=== PATIENT | male | born 1980 | race Caucasian/White ===

== ENCOUNTER 2017-11-30 20:44 | Inpatient (IN) | payer OTHER, MEDICAID ==
[2017-11-29 21:15] VITALS: O2SAT 100
[~2017-11-30] VITALS: Ht 172.7 cm; Wt 112.5 kg
[2017-11-30] VITALS (18 sets, daily range): BP systolic 109–206; BP diastolic 64–109; PULSE 96–152; RESP 18–28; TEMP 99.1–99.7; O2SAT 65–100
[2017-11-30] MEDS: SODIUM CHLOR 0.9% 1000 ML INJ 1,000 ML IV SCH (00:30)
[~2017-11-30 20:44] MED LIST: EPINEPHrine HCL (1:10,000) 1 MG/10 ML SYRINGE IV ONE; NALOXONE HCL 4 MG/10 ML MDV IV ONE; SODIUM BICARBONATE 8.4% INJ 50 MEQ/50 ML SYR IV ONE
[2017-11-30] MEDS ORDERED: SODIUM CHLORIDE 0.9% FLUSH 10 ML FLUSH IVF PRN ×2 (21:00)
[2017-11-30] MEDS ORDERED: NOREPINEPHRINE INJ 4 MG in SODIUM CHLOR 0.9% 250 ML INJ 246 ML IV PRN (21:00)
[2017-11-30] MEDS ORDERED: SODIUM CHLOR 0.9% 1000 ML INJ 1,000 ML IV ONE ×3 (21:00)
[2017-11-30] MEDS ORDERED: TERBUTALINE INJ 1 MG/ML AMP SQ PRN (21:00)
[2017-11-30] MEDS ORDERED: AMIODARONE INJ 450 MG in DEXTROSE 5% IN WATE(EXCEL) INJ 241 ML IV SCH ×2 (21:13)
[2017-11-30 21:20] LABS: AUTOMATED NEUTROPHIL # 9.8 TH/MM3 (1.8-7.7); BASOPHIL % 0.2 % (0.0-2.0); EOSINOPHIL % 0.2 % (0.0-4.0); HEMATOCRIT 38.6 % (39.0-51.0); LYMPH % 31.6 % (9.0-44.0); LYMPHOCYTE # 5.2 TH/MM3 (1.0-4.8); MEAN CELL VOLUME 92.6 FL (80.0-100.0); MEAN CORPUSCULAR HEMOGLOBIN 28.8 PG (27.0-34.0); MEAN PLATELET VOLUME 9.4 FL (7.0-11.0); MONO % 8.5 % (0.0-8.0); MONOCYTE # 1.4 TH/MM3 (0-0.9); NEUT % 59.5 % (16.0-70.0); PLATELET COUNT 212 TH/MM3 (150-450); RED BLOOD COUNT 4.17 MIL/MM3 (4.50-5.90); RED CELL DISTRIBUTION WIDTH 13.5 % (11.6-17.2); WHITE BLOOD COUNT 16.5 TH/MM3 (4.0-11.0)
[2017-11-30] MEDS: AMIODARONE INJ 450 MG in SODIUM CHLOR 0.9% (EXCEL) INJ 241 ML IV SCH (21:23)
--- NOTE | 2017-11-30 21:28 | RADRPT ---
EXAM DATE/TIME: 11/30/2017 21:17 [facility] COMPARISON: No previous studies available for comparison. INDICATIONS : Post intubation. MEDICAL HISTORY : None. SURGICAL HISTORY : None. ENCOUNTER: Initial ACUITY: 1 day PAIN SCORE: Non-responsive. LOCATION: Bilateral chest FINDINGS: An endotracheal tube has its tip 3 cm above the spencer. A nasogastric tube is noted within the stomac h. Patchy opacity is noted within the left upper lung field consistent with possible pneumonia. More diffuse perihilar infiltrates are suggestive of pulmonary vascular congestion or pneumonia. The heart is mildly enlarged. CONCLUSION: 1. Left upper lung field patchy consolidation consistent with possible pneumonia. 2. More diffuse perihilar infiltrates suggestive of pulmonary vascular congestion or pneumonia. 3. Cardiomegaly. 4. Endotracheal tube in good position with its tip 3 cm above the spencer. Tim Johnson MD on November 30, 2017 at 21:23 Board Certified Radiologist. This report was verified electronically.
[2017-11-30 21:29] LABS: INTERNATIONAL NORMALIZED RATIO 1.2 RATIO; PROTHROMBIN TIME - PATIENT 11.9 SEC (9.8-11.6)
[2017-11-30] MEDS ORDERED: PIPERACIL-TAZO 3.375 GM PREMIX 50 ML IV ONE (21:30)
[2017-11-30] MEDS ORDERED: VANCOMYCIN INJ 1,000 MG in SODIUM CHLOR 0.9% 250 ML INJ 250 ML IV ONE (21:30)
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
[2017-11-30 21:47] LABS: TROPONIN I 7.61 NG/ML (0.02-0.05)
[2017-11-30] MEDS ORDERED: PROPOFOL 1000 MG/100 ML INJ 100 ML IV PRN (22:00)
[2017-11-30] MEDS ORDERED: HEPARIN SODIUM - SQ 10,000 UNITS/ML VIAL SQ SCH (22:00)
[2017-11-30 22:06] LABS: AMORPHOUS SEDIMENT, URINE RARE; BACTERIA, URINE RARE /hpf; BILIRUBIN, URINE NEG (NEG); BLOOD, URINE MOD (NEG); GLUCOSE,URINE NEG (NEG); KETONE, URINE NEG (NEG); MUCUS URINE FEW /lpf (OCC); NITRITE,URINE NEG (NEG); PH, URINE 6.5 (5.0-8.5); SQUAMOUS EPITHELIAL CELL URINE <1 /hpf (0-5); URINE COLOR LIGHT-YELLOW (YELLW/STRAW); URINE LEUKOCYTE ESTERASE SMALL (NEG)
[2017-11-30 22:07] LABS: BANDS 10 % (0-6); LYMPHOCYTES 34 % (9-44); METAMYELOCYTES 2 % (0-1); MONOCYTES 7 % (0-8); MYELOCYTES 1 % (0-0); NEUTROPHIL # MANUAL DIFF 9.7 TH/MM3 (1.8-7.7); POLYS (SEG NEUTROPHILS) 46 % (16-70)
[2017-11-30] MEDS ORDERED: MAGNESIUM OXIDE 400 MG TAB PO PRN (22:30)
[2017-11-30] MEDS ORDERED: MAGNESIUM HYDROXIDE SUSP 30 ML CUP PO PRN (22:30)
[2017-11-30] MEDS ORDERED: POTASSIUM PHOSPHATE MONOBASIC 500 MG TAB PO/TUBE PRN (22:30)
[2017-11-30] MEDS ORDERED: POTASSIUM CHLOR 40 MEQ PREMIX 100 ML IV PRN (22:30)
[2017-11-30] MEDS ORDERED: POTASSIUM PHOSPHATE INJ 30 MMOL in SODIUM CHLOR 0.9% 250 ML INJ 250 ML IV PRN (22:30)
[2017-11-30] MEDS: OSELTAMIVIR PHOSPHATE 6 MG/ML 60 ML SUSP PO SCH (22:30)
[2017-11-30] MEDS ORDERED: POTASSIUM CHLOR 20 MEQ PREMIX 100 ML IV PRN ×2 (22:30)
[2017-11-30] MEDS ORDERED: SODIUM CHLORIDE 0.9% FLUSH 10 ML FLUSH IV FLUSH PRN (22:30)
[2017-11-30] MEDS ORDERED: POTASSIUM CHLORIDE 25 MEQ EFFERVESCENT TAB PO PRN (22:30)
[2017-11-30] MEDS ORDERED: ONDANSETRON HCL 4 MG/2 ML VIAL IV PUSH PRN (22:30)
[2017-11-30] MEDS ORDERED: POTASSIUM PHOSPHATE MONOBASIC 500 MG TAB PO PRN (22:30)
[2017-11-30] MEDS ORDERED: LACTULOSE SYRUP 20 GM/30 ML CUP PO PRN (22:30)
[2017-11-30] MEDS ORDERED: BISACODYL 10 MG SUPP RECTAL PRN (22:30)
[2017-11-30] MEDS ORDERED: ACETAMINOPHEN 325 MG TAB PO PRN (22:30)
[2017-11-30] MEDS ORDERED: MIDAZOLAM HCL 2 MG/2 ML VIAL IV PUSH PRN (22:30)
[2017-11-30] MEDS ORDERED: SODIUM PHOSPHATE INJ 30 MMOL in SODIUM CHLOR 0.9% 250 ML INJ 240 ML IV PRN (22:30)
[2017-11-30] MEDS ORDERED: SENNOSIDES 8.6 MG TAB PO PRN (22:30)
[2017-11-30] MEDS ORDERED: CHLORHEXIDINE GLUCONATE 2 % 1 PACK (2 CLOTHS) TOP PRN (22:30)
[2017-11-30] MEDS ORDERED: MAGNESIUM SULFATE INJ 4 GM in SODIUM CHLORIDE 0.9% INJ 92 ML IV PRN (22:30)
[2017-11-30] MEDS ORDERED: MAGNESIUM SULFATE INJ 2 GM in SODIUM CHLORIDE 0.9% INJ 96 ML IV PRN (22:30)
[2017-11-30] MEDS ORDERED: MISCELLANEOUS NURSING INFORMATION XX SCH (22:30)
[2017-11-30] MEDS ORDERED: IOHEXOL 350 MG/ML 10 ML VIAL (for RAD DIAG) IVCONTRAST ONE (23:03)
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
[2017-11-30] MEDS ORDERED: AMIODARONE INJ 450 MG in DEXTROSE 5% IN WATE(EXCEL) INJ 241 ML IV PRN ×2 (23:14)
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
[2017-11-30] MEDS: POTASSIUM CHLOR 40 MEQ PREMIX 100 ML IV PRN (23:30)
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
[2017-12-01] VITALS (16 sets, daily range): BP systolic 91–137; BP diastolic 53–78; PULSE 86–151; RESP 10–20; TEMP 95.2–99.2; O2SAT 93–100
[2017-12-01] MEDS: POTASSIUM CHLOR 40 MEQ PREMIX 100 ML IV PRN
[2017-12-01] MEDS: RESP: ALBUTEROL 2.5 MG/IPRATROPIUM 0.5 MG NEB (PRN) INH ×2 (00:13→04:30)
[2017-12-01] MEDS ORDERED: MIDAZOLAM HCL 2 MG/2 ML VIAL IV PUSH ONE (00:30)
[2017-12-01] MEDS ORDERED: MEPERIDINE HCL 25 MG/ML VIAL ONE (00:51)
[2017-12-01] MEDS ORDERED: Vancomycin Consult Pharmacy 1 EA OTHER SCH (01:00)
[2017-12-01] MEDS ORDERED: Mix all IV Meds in NS IV SCH (01:00)
[2017-12-01] MEDS ORDERED: LORazepam 2 MG/ML VIAL IV PUSH PRN (01:00)
[2017-12-01] MEDS ORDERED: VANCOMYCIN INJ 2,000 MG in SODIUM CHLORID 0.9% 500 ML INJ 500 ML IV ONE ×2 (01:00→13:30)
[2017-12-01] MEDS ORDERED: SODIUM CHLORIDE 0.9% FLUSH 10 ML FLUSH IV FLUSH PRN ×2 (01:00)
[2017-12-01] MEDS ORDERED: CISATRACURIUM 100 MG/NS 250 ML IV PRN ×2 (01:00)
[2017-12-01] MEDS ORDERED: MEPERIDINE HCL 25 MG/ML VIAL IV PUSH PRN (01:00)
[2017-12-01] MEDS: NOREPINEPHRINE 4 MG/250 ML NS IV PRN ×8 (01:30→16:46)
[2017-12-01 01:32] LABS: TOTAL PROTEIN,CSF 30.9 MG/DL (15.0-45.0)
[2017-12-01 01:39] LABS: SUPERNATE COLOR TUBE #1 SLIGHTLY XANTHOCHROM (CLEAR)
[2017-12-01 01:40] LABS: RBC TUBE #4 1917 /MM3; WBC TUBE #4 29 /MM3 (0-10)
[2017-12-01 01:44] LABS: CSF LYMPHOCYTES 3 %; CSF MONOCYTES 4 %; CSF NEUTROPHILS 93 %
[2017-12-01] MEDS: VASOPRESSIN INJ 40 UNITS in DEXTROSE 5% IN WATER 100ML INJ 98 ML IV SCH ×4 (02:27→15:07)
[2017-12-01] MEDS: MILRINONE INJ 20 MG in SODIUM CHLORIDE 0.9% INJ 80 ML IV SCH ×3 (02:48→15:06)
[2017-12-01] MEDS: AZITHROMYCIN INJ 500 MG in SODIUM CHLOR 0.9% 250 ML INJ 250 ML IV SCH (03:00)
[2017-12-01] MEDS: PIPERACIL-TAZO 4.5 GM PREMIX 100 ML IV SCH ×2 (03:00→09:09)
[2017-12-01] MEDS ORDERED: EPINEPHrine HCL (1:1000) 1 MG/ML VIAL ONE (03:29)
[2017-12-01] MEDS: EPINEPHrine (1:1000) INJ 2 MG in DEXTROSE 5% IN WATER INJ 250 ML IV PRN ×6 (04:00→16:45)
[2017-12-01] MEDS: CHLORHEXIDINE GLUCONATE 2 % 1 PACK (2 CLOTHS) TOP SCH (04:00)
[2017-12-01] MEDS: AMIODARONE INJ 450 MG in SODIUM CHLOR 0.9% (EXCEL) INJ 241 ML IV SCH ×3 (04:48→15:08)
[2017-12-01 05:28] LABS: AUTOMATED NEUTROPHIL # 19.7 TH/MM3 (1.8-7.7); BASOPHIL # 0.1 TH/MM3 (0-0.2); BASOPHIL % 0.3 % (0.0-2.0); HEMATOCRIT 37.5 % (39.0-51.0); LYMPH % 6.1 % (9.0-44.0); LYMPHOCYTE # 1.4 TH/MM3 (1.0-4.8); MEAN CELL VOLUME 86.9 FL (80.0-100.0); MEAN CORPUSCULAR HEMOGLOBIN 30.1 PG (27.0-34.0); MEAN CORPUSCULAR HGB CONC 34.7 % (32.0-36.0); MEAN PLATELET VOLUME 8.8 FL (7.0-11.0); MONO % 7.6 % (0.0-8.0); MONOCYTE # 1.7 TH/MM3 (0-0.9); PLATELET COUNT 253 TH/MM3 (150-450); RED BLOOD COUNT 4.32 MIL/MM3 (4.50-5.90); RED CELL DISTRIBUTION WIDTH 13.6 % (11.6-17.2); WHITE BLOOD COUNT 22.9 TH/MM3 (4.0-11.0)
[2017-12-01 05:41] LABS: ALBUMIN 2.4 GM/DL (3.4-5.0); ALKALINE PHOSPHATASE 124 U/L (45-117); ALT (GPT) 451 U/L (12-78); AST (GOT) 832 U/L (15-37); BICARBONATE 16.5 MEQ/L (21.0-32.0); BLOOD UREA NITROGEN 20 MG/DL (7-18); CALCIUM 7.3 MG/DL (8.5-10.1); CALCIUM-PROTEIN CORRECTED 7.8 MG/DL (8.5-10.1); CHLORIDE 105 MEQ/L (98-107); CREATININE 2.93 MG/DL (0.60-1.30); GLOMERULAR FILTRATION RATE 24 ML/MIN (>89); GLUCOSE,RANDOM 297 MG/DL (74-106); MAGNESIUM 2.2 MG/DL (1.5-2.5); PHOSPHORUS 3.4 MG/DL (2.5-4.9); SODIUM (NA) 139 MEQ/L (136-145); TOTAL BILIRUBIN ADULT 1.2 MG/DL (0.2-1.0); TOTAL PROTEIN 6.1 GM/DL (6.4-8.2)
--- NOTE | 2017-12-01 05:51 | RADRPT ---
EXAM DATE/TIME: 12/01/2017 04:35 [facility] COMPARISON: CHEST SINGLE AP, November 30, 2017, 21:17. INDICATIONS : Short of breath. MEDICAL HISTORY : None. SURGICAL HISTORY : None. ENCOUNTER: Initial ACUITY: 1 day PAIN SCORE: 0/10 LOCATION: Bilateral chest FINDINGS: A single view of the chest demonstrates endotracheal tube and nasogastric tube in good position. Slig ht improvement in airspace disease on the left and right perihilar region since November 30. No pneumo thorax or significant effusion. CONCLUSION: 1. Endotracheal tube and nasogastric tube in good position. Improving airspace disease. Max Suarez MD on December 01, 2017 at 5:46 Board Certified Radiologist. This report was verified electronically.
[2017-12-01 05:58] LABS: TROPONIN I GREATER THAN 40.00 NG/ML (0.02-0.05)
[2017-12-01 07:05] LABS: BANDS 33 % (0-6); BASOPHILS 1 % (0-2); MONOCYTES 7 % (0-8); NEUTROPHIL # MANUAL DIFF 21.1 TH/MM3 (1.8-7.7); POLYS (SEG NEUTROPHILS) 59 % (16-70)
[2017-12-01 07:06] LABS: ACANTHOCYTES OCC (NORMAL); BURR CELLS 1+ (NORMAL)
[2017-12-01 07:07] LABS: DOHLE BODIES PRESENT (NONE SEEN); TOXIC VACUOLATION PRESENT (NONE SEEN)
[2017-12-01] MEDS ORDERED: FAMOTIDINE 20 MG/2 ML VIAL IV PUSH SCH (09:00)
[2017-12-01] MEDS: DOCUSATE SODIUM 50 MG/SENNA 8.6 MG TAB PO SCH ×2 (09:00→21:00)
[2017-12-01] MEDS: ARTIFICIAL TEARS OPTH SOLN 15 ML BTL EACH EYE SCH ×3 (09:00→17:42)
[2017-12-01] MEDS ORDERED: SODIUM CHLORIDE 0.9% FLUSH 10 ML FLUSH IV FLUSH SCH (09:00)
[2017-12-01] MEDS: OSELTAMIVIR PHOSPHATE 6 MG/ML 60 ML SUSP PO SCH (09:00)
--- NOTE | 2017-12-01 09:28 | EKG ---
Date Performed: 11/30/2017 Time Performed: 20:52:29 PTAGE: 37 years EKG: ATRIAL FIBRILLATION WITH RAPID VENTRICULAR RESPONSE MARKED LEFT AXIS DEVIATION LEFT BUNDLE BRANCH BLOCK MARKED ST DEPRESSION, CONSIDER SUBENDOCARDIAL INJURY ABNORMAL ECG NO PREVIOUS TRACING DOCTOR: Jose Lopez Interpretating Date/Time 12/01/2017 09:25:36
[2017-12-01] MEDS ORDERED: PILL SPLITTER OTHER PRN (11:45)
[2017-12-01] MEDS ORDERED: SODIUM BICARBONATE 8.4% INJ 50 MEQ/50 ML SYR ONE (12:26)
--- NOTE | 2017-12-01 12:26 | ECHRPT ---
Indication: ?EF assessment in CHF CONCLUSIONS Normal left ventricular size. Wall thickness is normal. The left ventricular systolic function is bqryybtn-ow-dnpudwa reduced with an estimated ejection fra ction in the range of 35-40%. The right ventricular size is normal. There is trace tricuspid valve regurgitation. The pulmonary valve is not well visualized. BP: 98 / 98 HR: 86 Rhythm: Sinus MEASUREMENTS (Male / Female) Normal Values Technical Quality:Technically difficult study 2D ECHO LV Diastolic Diameter PLAX 4.9 cm 4.2 - 5.9 / 3.9 - 5.3 cm LV Systolic Diameter PLAX 4.0 cm IVS Diastolic Thickness 0.9 cm 0.6 - 1.0 / 0.6 - 0.9 cm LVPW Diastolic Thickness 0.9 cm 0.6 - 1.0 / 0.6 - 0.9 cm LV Relative Wall Thickness 0.4 RV Internal Dim ED PLAX 1.9 cm LVOT Diameter 2.0 cm Aortic Root Diameter 3.1 cm LA Systolic Diameter LX 2.4 cm 3.0 - 4.0 / 2.7 - 3.8 cm M-MODE AV Cusp Separation MM 2.4 cm DOPPLER AV Peak Velocity 95.1 cm/s AV Peak Gradient 3.6 mmHg AV Mean Gradient 2.0 mmHg AV Velocity Time Integral 10.1 cm LVOT Peak Velocity 67.7 cm/s LVOT Peak Gradient 1.8 mmHg LVOT Velocity Time Integral 8.8 cm AV Area Cont Eq vti 2.7 cm AV Area Cont Eq pk 2.2 cm Mitral E Point Velocity 41.5 cm/s Mitral A Point Velocity 55.3 cm/s Mitral E to A Ratio 0.8 LV E' Lateral Velocity 6.3 cm/s Mitral E to LV E' Lateral Ratio 6.5 LV E' Septal Velocity 7.5 cm/s Mitral E to LV E' Septal Ratio 5.5 TR Peak Velocity 278.0 cm/s TR Peak Gradient 30.9 mmHg Right Atrial Pressure 10.0 mmHg Pulmonary Artery Systolic Pressu 40.9 mmHg Right Ventricular Systolic Press 40.9 mmHg PV Peak Velocity 51.9 cm/s PV Peak Gradient 1.1 mmHg FINDINGS LEFT VENTRICLE Normal left ventricular size. Wall thickness is normal. The left ventricular systolic function is okmjgkce-zn-dczzgtn reduced with an estimated ejection fra ction in the range of 35-40%. RIGHT VENTRICLE The right ventricular size is normal. LEFT ATRIUM The left atrial size is normal. RIGHT ATRIUM The right atrial size is normal. ATRIAL SEPTUM No atrial level shunt is demonstrated by color flow Doppler interrogation. AORTA The aortic root and proximal ascending aorta are normal in size on limited imaging. MITRAL VALVE Structurally normal mitral valve. AORTIC VALVE The aortic valve is not well visualized. TRICUSPID VALVE There is trace tricuspid valve regurgitation. PULMONARY VALVE The pulmonary valve is not well visualized. PERICARDIUM No pericardial effusion. Leo Moore MD Edited by: [employer] (Electronically Signed) Final Date:01 December 2017 05:56 Amended: 01 December 2017 12:25
--- NOTE | 2017-12-01 12:48 | MB ---
cc: ALLABECCAN DATE OF CONSULTATION 12/01/2017 REASON FOR CONSULTATION Status post ventricular fibrillation/arrest, probable acute myocardial infarction. HISTORY OF PRESENT ILLNESS History is obtained from the electronic records as well as his brother. The patient is intubated, sedated, unresponsive. He is a 37-year-old, originally from [facility] [place], with no major past medical history except for apparent transient unexplained loss of left eye vision a few years ago, possibly hyperlipidemia, who was found down at home. The emergency services apparently found him to be in ventricular fibrillation necessitating four shocks. En route to the emergency room and again in the emergency department, he developed intermittent pulseless electrical activity. At some point in the emergency department, he also had atrial fibrillation with wide complex QRS. He was felt to unstable at the time for emergency cardiac catheterization. According to family members, there has been no definite complaints of chest pain or shortness of breath recently. The patient did complain of flu symptoms about three to four days ago and started on Tamiflu two days ago. PAST MEDICAL HISTORY As above. CARDIAC MEDICATIONS AT HOME None CURRENT MEDICATIONS Current cardiac medications here in the hospital: 1. Heparin 5000 units subcutaneously q.8 h. 2. Epinephrine drip 3. Milrinone drip 4. Vasopressin drip 5. Norepinephrine drip 6. Amiodarone drip ALLERGIES NO KNOWN DRUG ALLERGIES. FAMILY HISTORY There is no significant family history of cardiac disease or sudden . SOCIAL HISTORY The patient has never smoked cigarettes. There is no history of alcohol abuse. REVIEW OF SYSTEMS Currently unobtainable. PHYSICAL EXAMINATION VITAL SIGNS: Blood pressure 97/57 with a pulse of 110, respirations 10. GENERAL: He is a well-developed, well-nourished [facility] male currently intubated and sedated. HEENT: On examination, jugular venous pressure is difficult to assess. Carotid pulses are 2+ bilaterally and without bruits. CHEST: Examination of the chest reveals clear lung xie anteriorly. CARDIAC: On cardiac examination, he has a tachycardiac regular rhythm without S3, S4, murmur or rub. ABDOMEN: On abdominal examination, he has a soft abdomen. No definite bowel sounds are audible. There is no definite hepatosplenomegaly. EXTREMITIES: Examination of extremities reveals no clubbing, cyanosis or edema. LABORATORY DATA Includes WBC 22.9, hemoglobin 13.0, platelets 253. Potassium 2.5, BUN 20, creatinine 2.93, AST 832, ALT 451, troponin greater than 40, CK 331 with 5.0% MB fraction. EKG shows atrial fibrillation, left bundle-branch block, ST abnormality, consider acute inferior injury pattern. Chest x-ray shows left upper lung field consolidation suggestive of possible pneumonia, perihilar infiltrates suggestive of pulmonary vascular congestion. Head CT shows diffuse effacement of the cerebral sulci bilaterally suggestive of probable diffuse anoxic encephalopathy. There is also a questionable subarachnoid hemorrhage bilaterally. IMPRESSION Probable acute myocardial infarction complicated by ventricular tachy arrhythmias and pulseless electrical activity cardiac arrest in this 37-year-old [facility] male with previously no major past medical history. It appears by head CT, he may have diffuse anoxic encephalopathy. There is also a question of subarachnoid hemorrhage. He may have been pulseless for a prolonged period of time. At this time, he continues to be hypotensive on considerable pressor support. Repeat EKG is pending. At this time, he is not a good candidate for emergency cardiac catheterization. RECOMMENDATIONS 1. Continue IV amiodarone for his ventricular arrhythmias as well as paroxysmal atrial fibrillation. 2. Continue pressor support and ventilatory support. 3. If his neurological status improves, recommend cardiac catheterization. MD ADDISON Yung/YOLA /12:24 PM /12:36 PM WILY
[2017-12-01] MEDS ORDERED: SODIUM BICARBONATE 8.4% INJ 50 MEQ/50 ML SYR IV PUSH ONE (12:49)
[2017-12-01] MEDS ORDERED: CALCIUM CHLORIDE INJ 2 GM in SODIUM CHLORIDE 0.9% INJ 100 ML IV ONE (14:00)
[2017-12-01 14:26] LABS: PHOSPHORUS 1.2 MG/DL (2.5-4.9)
[2017-12-01 14:35] LABS: TROPONIN I GREATER THAN 40.00 NG/ML (0.02-0.05)
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
[2017-12-01] MEDS: POTASSIUM CHLOR 20 MEQ PREMIX 100 ML IV SCH ×2 (15:02→17:41)
[2017-12-01] MEDS: PIPERACIL-TAZO 3.375 GM PREMIX 50 ML IV SCH ×2 (15:14→21:00)
--- NOTE | 2017-12-01 15:46 | RADRPT ---
EXAM DATE/TIME: 12/01/2017 13:56 [facility] COMPARISON: No previous studies available for comparison. INDICATIONS : Post cardiac arrest. DOSE: 25 mCi Tc99m DTPA IV The diagnosis of brain is clinical and the results of this test should be taken in the content of clinical and electrocephalographic data. MEDICAL HISTORY : None SURGICAL HISTORY : None. ENCOUNTER: Initial ACUITY: 1 day PAIN SCALE: Non-responsive LOCATION: Head. TECHNIQUE: Anterior dynamic imaging as well as delayed static imaging. FINDINGS: On the vertex image there is still minimal flow in the sagittal sinus. CONCLUSION: Minimal flow in the sagittal sinus. The patient does not meet the criteria for brain . Judah Schmitt MD on December 01, 2017 at 15:41 Board Certified Radiologist. This report was verified electronically.
[2017-12-01] MEDS: SODIUM CHLOR 0.9% 1000 ML INJ 1,000 ML IV SCH (17:42)
[2017-12-01] MEDS ORDERED: SODIUM BICARBONATE 8.4% INJ 50 MEQ/50 ML SYR IV ONE (18:00)
[2017-12-01] MEDS ORDERED: DILTIAZEM HCL 30 MG TAB PO SCH (18:00)
--- NOTE | 2017-12-01 20:37 | EKG ---
Date Performed: 12/01/2017 Time Performed: 16:06:50 PTAGE: 37 years EKG: Baseline artifact present Probable sinus tachycardia. Possible anterior infarct - age unde termined Low QRS voltages in precordial leads Abnormal ECG Compared to prior electrocardiogram, Irreg ular, wide complex rhythm is no longer present. PREVIOUS TRACING : 11/30/2017 20.52 DOCTOR: Titi Mitchell Interpretating Date/Time 12/01/2017 20:36:48
[2017-12-01] MEDS ORDERED: OSELTAMIVIR PHOSPHATE 6 MG/ML 60 ML SUSP PO SCH ×2 (21:00)
[2017-12-01] MEDS: FAMOTIDINE 20 MG TAB PO SCH (21:00)
[2017-12-01] MEDS ORDERED: HEPARIN SODIUM - SQ 10,000 UNITS/ML VIAL SQ SCH (22:00)
--- NOTE | 2017-12-01 22:02 | MG ---
cc: MARKY PELAYO MD Lab No: Date: 12/01/2017 Age: Sex: M Race: DATE OF 1980 ELECTROENCEPHALOGRAM RECORD NUMBER [id number] INDICATION History of cardiac arrest. Apparently on sedation for 12 hours prior to EEG. DESCRIPTION Flat line type of appearance occurring throughout the recording. Questionable minimal voltage delta activity. Single lead EKG showing sinus rhythm. INTERPRETATION Flat line appearance suggestive of severe cortical injury / suppression. Clinical correlation. Marky Pelayo MD MG/KK /9:14 PM /9:36 PM
--- NOTE | 2017-12-01 22:47 | PD.PROCEDR ---
Procedure Note Procedure Lumbar puncture A time-out was completed verifying correct patient, procedure, site, positioning , and special equipment if applicable. The patient was placed in the left lateral decubitus position in a semi- position with help from the nursing staff. The area was cleansed and draped in usual sterile fashion. 1% lidocaine was used anesthetize the surrounding skin area. A 20-gauge 3.5-inch spinal needle was placed in the L3-L4 interspace. Clear cerebral spinal fluid was obtained and the opening pressure was noted to be 32. Four tubes were filled with 4 mL of CSF. These were sent for the usual tests, including 1 tube to be held for further analysis if needed. The closing pressure was noted to be 19. Estimated Blood Loss: 1 mL The patient tolerated the procedure well and there were no complications. Donnie Yanez MD Dec 01, 2017 10:47 pm
[2017-12-01] MEDS ORDERED: niCARdipine 25 MG/NS 250 ML Vial2Bag or IV room IV PRN ×2 (23:15)
[2017-12-01] MEDS ORDERED: GLUCAGON 1 MG/ML VIAL OTHER PRN (23:30)
[2017-12-01] MEDS ORDERED: DEXTROSE 50% IN WATER 50 ML VIAL(D50) IV PUSH PRN (23:30)
[2017-12-01] MEDS ORDERED: INSULIN ASPART 1,000 UNITS/10 ML VIAL SQ SCH (23:45)
[2017-12-02] VITALS (22 sets, daily range): BP systolic 86–112; BP diastolic 44–72; PULSE 118–132; RESP 16–22; TEMP 96.4–98.7; O2SAT 85–98
[2017-12-02] MEDS: NOREPINEPHRINE 4 MG/250 ML NS IV PRN ×4 (00:28→18:16)
[2017-12-02] MEDS: PIPERACIL-TAZO 3.375 GM PREMIX 50 ML IV SCH ×4 (03:00→21:00)
[2017-12-02] MEDS: AZITHROMYCIN INJ 500 MG in SODIUM CHLOR 0.9% 250 ML INJ 250 ML IV SCH (03:00)
[2017-12-02] MEDS: AMIODARONE INJ 450 MG in SODIUM CHLOR 0.9% (EXCEL) INJ 241 ML IV SCH ×3 (03:33→18:05)
[2017-12-02] MEDS: CHLORHEXIDINE GLUCONATE 2 % 1 PACK (2 CLOTHS) TOP SCH (04:00)
[2017-12-02] MEDS: MILRINONE INJ 20 MG in SODIUM CHLORIDE 0.9% INJ 80 ML IV SCH ×4 (04:20→16:59)
[2017-12-02] MEDS: SODIUM CHLOR 0.9% 1000 ML INJ 1,000 ML IV SCH ×3 (04:21→13:35)
[2017-12-02 05:20] LABS: HEMATOCRIT 33.9 % (39.0-51.0); HEMOGLOBIN 11.7 GM/DL (13.0-17.0); MEAN CORPUSCULAR HEMOGLOBIN 29.3 PG (27.0-34.0); MEAN CORPUSCULAR HGB CONC 34.4 % (32.0-36.0); MEAN PLATELET VOLUME 8.8 FL (7.0-11.0); PLATELET COUNT 189 TH/MM3 (150-450); RED BLOOD COUNT 3.99 MIL/MM3 (4.50-5.90); RED CELL DISTRIBUTION WIDTH 13.4 % (11.6-17.2); WHITE BLOOD COUNT 17.2 TH/MM3 (4.0-11.0)
[2017-12-02] MEDS: INSULIN ASPART SUPPLEMENTAL SCALE SQ SCH ×4 (05:28→17:58)
[2017-12-02 05:29] LABS: INTERNATIONAL NORMALIZED RATIO 1.2 RATIO
[2017-12-02 05:56] LABS: BICARBONATE 21.4 MEQ/L (21.0-32.0); CREATININE 4.96 MG/DL (0.60-1.30); DIRECT BILIRUBIN ADULT 0.4 MG/DL (0.0-0.2); INDIRECT BILIRUBIN 0.4 MG/DL (0.0-0.8); RANDOM VANCOMYCIN 29.1 COMMENT; TOTAL BILIRUBIN ADULT 0.8 MG/DL (0.2-1.0); TOTAL PROTEIN 5.7 GM/DL (6.4-8.2)
[2017-12-02] MEDS ORDERED: INSULIN ASPART SUPPLEMENTAL SCALE SQ SCH (08:00)
--- NOTE | 2017-12-02 08:12 | PD.CARD.PN ---
Subjective Subjective Remarks Intubated. Unresponsive. Objective Medications Item Value Date Time Milrinone Lactate 100 ml @ 7.5 mls/hr 12/01/17 2215 20 mg/Sodium .[id number]/IV 12/02/17 0420 Chloride Vasopressin 40 100 ml @ 1.5 mls/hr 12/01/17 0227 units/Dextrose .Q24H/IV 12/01/17 1507 Norepinephrine 250 ml @ 7.5 mls/hr 12/01/17 0100 Bitartrate 4 mg/ .Q24H PRN/IV 12/02/17 0028 Sodium Chloride Amiodarone HCl 250 ml @ 33 mls/hr 11/30/17 2113 450 mg/Sodium .Q7H35M/IV 12/01/17 1508 Chloride Current Medications Medications (Trade) Dose Ordered Sig/Anjelica Route Start Time Stop Time Status Last Admin (Brethine Inj) 1 mg UNSCH PRN SQ 11/30/17 21:00 Amiodarone HCl 450 mg/Sodium Chloride 250 ml @ 33 mls/hr Q7H35M IV 11/30/17 21:13 12/01/17 15:08 Sodium Chloride 1,000 ml @ 84 mls/hr [id number] IV 11/30/17 23:00 12/02/17 04:21 (Tylenol) 650 mg Q6H PRN PO 11/30/17 22:30 (Tears Naturale Opth Soln) 1 drop TID EACH EYE 12/01/17 09:00 (Zofran Inj) 4 mg Q6H PRN IV PUSH 11/30/17 22:30 (Duoneb Neb) 1 ampule Q2HR NEB PRN INH 11/30/17 22:30 12/01/17 04:30 Miscellaneous Information 1 Q361D XX 11/30/17 22:30 (Chlorhexidine 2% Cloth) 3 pack Taper DAILY@04 TOP 12/01/17 04:00 11/27/18 03:59 12/02/17 04:00 (Chlorhexidine 2% Cloth) 3 pack UNSCH PRN TOP 11/30/17 22:30 (Sarah-Colace) 1 tab BID PO 12/01/17 09:00 (Milk Of Magnesia Liq) 30 ml Q12H PRN PO 11/30/17 22:30 (Senokot) 17.2 mg Q12H PRN PO 11/30/17 22:30 (Dulcolax Supp) 10 mg DAILY PRN RECTAL 11/30/17 22:30 (fentaNYL INJ) 50 mcg Q1H PRN IV PUSH 12/01/17 00:30 Pharmacy Profile Note 0 ml @ 0 mls/hr UNSCH OTHER 12/01/17 01:00 Miscellaneous Information ml @ 0 mls/hr UNSCH IV 12/01/17 01:00 (NS Flush) 2 ml UNSCH PRN IV FLUSH 12/01/17 01:00 (NS Flush) 2 ml UNSCH PRN IV FLUSH 12/01/17 01:00 (Lacrilube Opht Oint) 1 applic Q4H PRN EACH EYE 12/01/17 01:00 Norepinephrine Bitartrate 4 mg/ Sodium Chloride 250 ml @ 7.5 mls/hr Q24H PRN IV 12/01/17 01:00 12/02/17 00:28 (Heparin Inj) 5,000 units Q8H SQ 12/01/17 22:00 Future Hold 12/01/17 22:00 Azithromycin 500 mg/Sodium Chloride 250 ml @ 250 mls/hr Q24H IV 12/01/17 03:00 12/02/17 03:00 Vasopressin 40 units/Dextrose 100 ml @ 1.5 mls/hr Q24H IV 12/01/17 02:27 12/01/17 15:07 Epinephrine HCl 2 mg/Dextrose 252 ml @ 75.6 mls/hr TITRATE PRN IV 12/01/17 03:15 12/01/17 16:45 (Pepcid) 10 mg BID PO 12/01/17 21:00 12/01/17 21:00 Piperacillin Sod/ Tazobactam Sod 50 ml @ 100 mls/hr Q6H IV 12/01/17 15:00 12/02/17 03:00 (Pill Splitter) 1 ea UNSCH PRN OTHER 12/01/17 11:45 Milrinone Lactate 20 mg/Sodium Chloride 100 ml @ 7.5 mls/hr [id number] IV 12/01/17 22:15 12/02/17 04:20 (D50w (Vial) Inj) 50 ml UNSCH PRN IV PUSH 12/01/17 23:30 (Glucagon Inj) 1 mg UNSCH PRN OTHER 12/01/17 23:30 (NovoLOG SUPPLEMENTAL SCALE) 1 Q6H SQ 12/02/17 00:00 Vital Signs / I&O Vital Signs Date Time Temp Pulse Resp B/P (MAP) Pulse Ox O2 Delivery O2 Flow Rate FiO2 12/02/17 07:56 95 Mechanical Ventilator 50 12/02/17 07:54 50 12/02/17 07:49 118 12/02/17 07:48 96.5 118 22 112/72 (85) 95 12/02/17 07:18 93 50 12/02/17 04:40 95 Mechanical Ventilator 50 12/02/17 04:40 50 12/02/17 04:20 118 104/68 12/02/17 04:06 94 40 12/02/17 04:00 40 12/02/17 04:00 96.4 118 22 103/67 (79) 95 12/02/17 04:00 120 12/02/17 04:00 96 Mechanical Ventilator 40 12/02/17 00:28 120 92/60 12/02/17 00:09 96 40 12/02/17 00:00 40 12/02/17 00:00 97.1 120 22 105/65 (78) 96 12/02/17 00:00 120 12/02/17 00:00 96 Mechanical Ventilator 40 12/01/17 20:00 97.8 124 20 137/78 (97) 96 Automatic Cuff 12/01/17 20:00 96 Mechanical Ventilator 40 12/01/17 20:00 124 12/01/17 20:00 40 12/01/17 19:24 95 40 12/01/17 18:16 122 148/81 12/01/17 17:12 93 40 12/01/17 16:46 122 118/68 12/01/17 16:45 122 117/67 12/01/17 15:08 114 104/59 12/01/17 15:07 115 105/59 12/01/17 15:06 117 111/62 12/01/17 15:00 40 12/01/17 15:00 96.2 117 18 110/62 (78) 93 12/01/17 15:00 93 Mechanical Ventilator 40 12/01/17 15:00 117 12/01/17 15:00 117 12/01/17 14:00 97 40 12/01/17 12:43 96 40 12/01/17 11:41 109 97/57 12/01/17 11:00 40 12/01/17 11:00 96.4 108 10 107/62 (77) 98 12/01/17 11:00 108 12/01/17 11:00 108 12/01/17 11:00 98 Mechanical Ventilator 40 12/01/17 10:32 98 40 12/01/17 09:15 106 94/56 12/01/17 09:14 106 93/56 12/01/17 09:13 106 92/55 12/01/17 09:10 109 96/57 I/O 12/01/17 12/01/17 12/01/17 12/02/17 12/02/17 12/02/17 07:00 15:00 23:00 07:00 15:00 23:00 Intake Total 3242.8 ml 200 ml 5366.3 ml 1400 ml Output Total 375 ml 75 ml 120 ml Balance 2867.8 ml 200 ml 5291.3 ml 1280 ml Intake Oral 0 ml 0 ml IV Total 3242.8 ml 200 ml 5366.3 ml 1400 ml Output Urine Total 275 ml 25 ml 70 ml Stool Total 100 ml 50 ml Gastric Drainage Total 50 ml # Bowel Movements 0 Physical Exam GENERAL: Well developed, well nourished. Intubated. Unresponsive. HEENT: Jugular venous pressure is normal. CHEST: Lungs clear to auscultation anteriorly. CARDIAC: Regular rate and rhythm without S3, S4, or murmur. ABDOMEN: Soft, no hepatosplenomegaly. Bowel sounds absent. EXTREMITIES: No clubbing, cyanosis, or edema. Laboratory Laboratory Tests Test 12/01/17 13:15 12/01/17 16:45 12/01/17 17:55 12/02/17 04:30 Phosphorus Level 1.2 MG/DL Troponin I GREATER THAN 40.00 NG/ML Blood Gas Puncture Site ART LINE Blood Gas Patient Temperature 98.6 Blood Gas HCO3 16 mmol/L Blood Gas Base Excess -10.7 mmol/L Blood Gas Oxygen Saturation 93 % Arterial Blood pH 7.19 Arterial Blood Partial Pressure CO2 43 mmHg Arterial Blood Partial Pressure O2 84 mmHg Arterial Blood Oxygen Content 15.6 Vol % Arterial Blood Carboxyhemoglobin 0.4 % Arterial Blood Methemoglobin 1.8 % Blood Gas Hemoglobin 11.9 G/DL Oxygen Delivery Device VENTILATOR Adenovirus (PCR) NOT DETECTED Bordetella holmesii (PCR) NOT DETECTED Bordetella pertussis DNA (PCR) NOT DETECTED B. parapertussis/bronchi (PCR) NOT DETECTED Human Metapneumovirus (PCR) NOT DETECTED Influenza Type A (RT-PCR) NOT DETECTED Influenza Type A (H1) (PCR) NOT DETECTED Influenza Type A (H3) (PCR) NOT DETECTED Influenza Type B (RT-PCR) NOT DETECTED Parainfluenza Type 1 (PCR) NOT DETECTED Parainfluenza Type 2 (PCR) NOT DETECTED Parainfluenza Type 3 (PCR) NOT DETECTED Parainfluenza Type 4 (PCR) NOT DETECTED Resp Syncytial Virus Type A (PCR) NOT DETECTED Resp Syncytial Virus Type B (PCR) NOT DETECTED Rhinovirus (PCR) NOT DETECTED White Blood Count 17.2 TH/MM3 Red Blood Count 3.99 MIL/MM3 Hemoglobin 11.7 GM/DL Hematocrit 33.9 % Mean Corpuscular Volume 85.0 FL Mean Corpuscular Hemoglobin 29.3 PG Mean Corpuscular Hemoglobin Concent 34.4 % Red Cell Distribution Width 13.4 % Platelet Count 189 TH/MM3 Mean Platelet Volume 8.8 FL Prothrombin Time 12.0 SEC Prothromb Time International Ratio 1.2 RATIO Activated Partial Thromboplast Time 28.0 SEC Blood Urea Nitrogen 31 MG/DL Creatinine 4.96 MG/DL Random Glucose 152 MG/DL Total Protein 5.7 GM/DL Albumin 2.0 GM/DL Calcium Level 8.0 MG/DL Alkaline Phosphatase 79 U/L Aspartate Amino Transf (AST/SGOT) 293 U/L Alanine Aminotransferase (ALT/SGPT) 308 U/L Gamma Glutamyl Transpeptidase 79 U/L Total Bilirubin 0.8 MG/DL Direct Bilirubin 0.4 MG/DL Sodium Level 138 MEQ/L Potassium Level 3.8 MEQ/L Chloride Level 105 MEQ/L Carbon Dioxide Level 21.4 MEQ/L Anion Gap 12 MEQ/L Estimat Glomerular Filtration Rate 13 ML/MIN Indirect Bilirubin 0.4 MG/DL Random Vancomycin Level 29.1 COMMENT Imaging Last 24 hours Impressions Brain Flow Nuclear Medicine 12/01/17 1600 Signed Impressions: Service Date/Time: Friday, December 01, 2017 13:56 - CONCLUSION: Minimal flow in the sagittal sinus. The patient does not meet the criteria for brain . Judah Schmitt MD Assessment and Plan Problem List: (1) Myocardial infarction acute ICD Codes: I21.9 - Acute myocardial infarction, unspecified Status: Acute Plan: Stable overnight. Some decrease in pressor support requirements. Neurological status remains poor. EF reportedly 30-40% by echo. No new recommendations at this time. Cath only if he has significant neurological recovery. (2) Dilated cardiomyopathy ICD Codes: I42.0 - Dilated cardiomyopathy Status: Acute Plan: EF reportedly 30-40% by echo. Improving CXR findings. BP's too low for beta ramu, ANDRY-I. Continue supportive care. (3) Ventricular tachyarrhythmia ICD Codes: I47.2 - Ventricular tachycardia Status: Acute Plan: No further VF, PEA, or atrial fibrillation. Continue IV Amiodarone for now. Code Status full code Discussed Condition With patient's brother Problem Qualifiers (1) Myocardial infarction acute: Qualified Codes: I21.4 - Non-ST elevation (NSTEMI) myocardial infarction Kev Fernandes MD Dec 02, 2017 08:12
[2017-12-02] MEDS: VASOPRESSIN INJ 40 UNITS in DEXTROSE 5% IN WATER 100ML INJ 98 ML IV SCH ×2 (08:42)
[2017-12-02] MEDS: FAMOTIDINE 20 MG TAB PO SCH ×2 (08:48→21:00)
[2017-12-02] MEDS: ARTIFICIAL TEARS OPTH SOLN 15 ML BTL EACH EYE SCH ×3 (08:48→18:00)
[2017-12-02] MEDS: DOCUSATE SODIUM 50 MG/SENNA 8.6 MG TAB PO SCH ×2 (08:48→21:00)
[2017-12-02 13:55] LABS: HSV 1,PCR Negative (Negative)
[2017-12-02] MEDS ORDERED: CHLOROTHIAZIDE SOD 500 MG VIAL IV ONE (18:30)
[2017-12-02] MEDS ORDERED: FUROSEMIDE 100 MG/10 ML VIAL IV PUSH ONE (18:30)
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
[2017-12-03] VITALS (16 sets, daily range): BP systolic 98–128; BP diastolic 48–65; PULSE 114–134; RESP 22–24; TEMP 98.2–99.3; O2SAT 96–99
[2017-12-03] MEDS: AMIODARONE INJ 450 MG in SODIUM CHLOR 0.9% (EXCEL) INJ 241 ML IV SCH ×3 (01:30→15:21)
[2017-12-03] MEDS: NOREPINEPHRINE 4 MG/250 ML NS IV PRN ×6 (02:34→15:20)
[2017-12-03] MEDS: VASOPRESSIN INJ 40 UNITS in DEXTROSE 5% IN WATER 100ML INJ 98 ML IV SCH ×4 (02:35→15:19)
[2017-12-03] MEDS: MILRINONE INJ 20 MG in SODIUM CHLORIDE 0.9% INJ 80 ML IV SCH ×2 (02:36→15:19)
[2017-12-03] MEDS: PIPERACIL-TAZO 3.375 GM PREMIX 50 ML IV SCH ×3 (03:00→15:30)
[2017-12-03] MEDS: AZITHROMYCIN INJ 500 MG in SODIUM CHLOR 0.9% 250 ML INJ 250 ML IV SCH (03:30)
[2017-12-03] MEDS: ARTIFICIAL TEARS OPTH OINT 3.5 APPLIC/3.5 GM TUBO EACH EYE PRN ×2 (04:00→08:28)
[2017-12-03] MEDS: CHLORHEXIDINE GLUCONATE 2 % 1 PACK (2 CLOTHS) TOP SCH (04:00)
[2017-12-03 04:51] LABS: HEMATOCRIT 30.1 % (39.0-51.0); HEMOGLOBIN 9.9 GM/DL (13.0-17.0); MEAN CELL VOLUME 87.1 FL (80.0-100.0); MEAN CORPUSCULAR HEMOGLOBIN 28.7 PG (27.0-34.0); MEAN CORPUSCULAR HGB CONC 32.9 % (32.0-36.0); MEAN PLATELET VOLUME 8.8 FL (7.0-11.0); PLATELET COUNT 198 TH/MM3 (150-450); RED BLOOD COUNT 3.46 MIL/MM3 (4.50-5.90); RED CELL DISTRIBUTION WIDTH 13.6 % (11.6-17.2); WHITE BLOOD COUNT 22.8 TH/MM3 (4.0-11.0)
[2017-12-03 05:07] LABS: INTERNATIONAL NORMALIZED RATIO 1.2 RATIO; PROTHROMBIN TIME - PATIENT 11.9 SEC (9.8-11.6)
[2017-12-03 05:08] LABS: ALBUMIN 1.7 GM/DL (3.4-5.0); BICARBONATE 21.7 MEQ/L (21.0-32.0); CALCIUM 7.3 MG/DL (8.5-10.1); CREATININE 7.48 MG/DL (0.60-1.30); DIRECT BILIRUBIN ADULT 0.6 MG/DL (0.0-0.2); INDIRECT BILIRUBIN 0.3 MG/DL (0.0-0.8); TOTAL BILIRUBIN ADULT 0.9 MG/DL (0.2-1.0); TOTAL PROTEIN 5.7 GM/DL (6.4-8.2)
[2017-12-03] MEDS ORDERED: SODIUM BICARBONATE 8.4% INJ 50 MEQ/50 ML SYR IV PUSH ONE (05:15)
[2017-12-03] MEDS: INSULIN ASPART SUPPLEMENTAL SCALE SQ SCH ×4 (06:00→18:11)
[2017-12-03] MEDS: DOCUSATE SODIUM 50 MG/SENNA 8.6 MG TAB PO SCH (08:27)
[2017-12-03] MEDS: FAMOTIDINE 20 MG TAB PO SCH (08:27)
[2017-12-03] MEDS: ARTIFICIAL TEARS OPTH SOLN 15 ML BTL EACH EYE SCH ×2 (08:46→12:59)
--- NOTE | 2017-12-03 09:14 | PD.CARD.PN ---
Subjective Subjective Remarks Intubated. Unresponsive. Objective Medications Item Value Date Time Milrinone Lactate 100 ml @ 7.5 mls/hr 12/01/17 2215 20 mg/Sodium .[id number]/IV 12/03/17 0236 Chloride Epinephrine HCl 2 252 ml @ 75.6 mls/hr 12/01/17 0315 mg/Dextrose TITRATE PRN/IV 12/01/17 1645 Norepinephrine 250 ml @ 7.5 mls/hr 12/01/17 0100 Bitartrate 4 mg/ .Q24H PRN/IV 12/03/17 0739 Sodium Chloride Amiodarone HCl 250 ml @ 33 mls/hr 11/30/17 2113 450 mg/Sodium .Q7H35M/IV 12/03/17 0130 Chloride Current Medications Medications (Trade) Dose Ordered Sig/Anjelica Route Start Time Stop Time Status Last Admin (Brethine Inj) 1 mg UNSCH PRN SQ 11/30/17 21:00 Amiodarone HCl 450 mg/Sodium Chloride 250 ml @ 33 mls/hr Q7H35M IV 11/30/17 21:13 12/03/17 01:30 (Tylenol) 650 mg Q6H PRN PO 11/30/17 22:30 (Tears Naturale Opth Soln) 1 drop TID EACH EYE 12/01/17 09:00 (Zofran Inj) 4 mg Q6H PRN IV PUSH 11/30/17 22:30 (Duoneb Neb) 1 ampule Q2HR NEB PRN INH 11/30/17 22:30 12/01/17 04:30 Miscellaneous Information 1 Q361D XX 11/30/17 22:30 (Chlorhexidine 2% Cloth) 3 pack Taper DAILY@04 TOP 12/01/17 04:00 11/27/18 03:59 12/03/17 04:00 (Chlorhexidine 2% Cloth) 3 pack UNSCH PRN TOP 11/30/17 22:30 (Sarah-Colace) 1 tab BID PO 12/01/17 09:00 12/03/17 08:27 (Milk Of Magnesia Liq) 30 ml Q12H PRN PO 11/30/17 22:30 (Senokot) 17.2 mg Q12H PRN PO 11/30/17 22:30 (Dulcolax Supp) 10 mg DAILY PRN RECTAL 11/30/17 22:30 (fentaNYL INJ) 50 mcg Q1H PRN IV PUSH 12/01/17 00:30 Pharmacy Profile Note 0 ml @ 0 mls/hr UNSCH OTHER 12/01/17 01:00 Miscellaneous Information ml @ 0 mls/hr UNSCH IV 12/01/17 01:00 (NS Flush) 2 ml UNSCH PRN IV FLUSH 12/01/17 01:00 (NS Flush) 2 ml UNSCH PRN IV FLUSH 12/01/17 01:00 (Lacrilube Opht Oint) 1 applic Q4H PRN EACH EYE 12/01/17 01:00 12/03/17 08:28 Norepinephrine Bitartrate 4 mg/ Sodium Chloride 250 ml @ 7.5 mls/hr Q24H PRN IV 12/01/17 01:00 12/03/17 07:39 (Heparin Inj) 5,000 units Q8H SQ 12/01/17 22:00 Future Hold 12/01/17 22:00 Azithromycin 500 mg/Sodium Chloride 250 ml @ 250 mls/hr Q24H IV 12/01/17 03:00 12/03/17 03:30 Vasopressin 40 units/Dextrose 100 ml @ 1.5 mls/hr Q24H IV 12/01/17 02:27 12/03/17 02:35 Epinephrine HCl 2 mg/Dextrose 252 ml @ 75.6 mls/hr TITRATE PRN IV 12/01/17 03:15 12/01/17 16:45 (Pepcid) 10 mg BID PO 12/01/17 21:00 12/03/17 08:27 Piperacillin Sod/ Tazobactam Sod 50 ml @ 100 mls/hr Q6H IV 12/01/17 15:00 12/03/17 08:28 (Pill Splitter) 1 ea UNSCH PRN OTHER 12/01/17 11:45 Milrinone Lactate 20 mg/Sodium Chloride 100 ml @ 7.5 mls/hr [id number] IV 12/01/17 22:15 12/03/17 02:36 (D50w (Vial) Inj) 50 ml UNSCH PRN IV PUSH 12/01/17 23:30 (Glucagon Inj) 1 mg UNSCH PRN OTHER 12/01/17 23:30 (NovoLOG SUPPLEMENTAL SCALE) 1 Q6H SQ 12/02/17 00:00 Vital Signs / I&O Vital Signs Date Time Temp Pulse Resp B/P (MAP) Pulse Ox O2 Delivery O2 Flow Rate FiO2 12/03/17 09:00 121 127/68 12/03/17 08:44 98.6 12/03/17 08:24 123 121/69 12/03/17 08:03 98 50 12/03/17 07:44 125 131/70 12/03/17 07:39 126 120/70 12/03/17 07:39 126 121/70 12/03/17 07:39 128 12/03/17 07:17 98 Mechanical Ventilator 50 12/03/17 07:16 126 12/03/17 07:16 50 12/03/17 07:15 98.6 126 24 112/65 (81) 98 12/03/17 04:48 98 60 12/03/17 04:00 132 12/03/17 04:00 70 12/03/17 04:00 99.3 132 24 111/60 (77) 98 12/03/17 04:00 98 Mechanical Ventilator 70 12/03/17 02:36 134 120/67 12/03/17 02:35 134 120/67 12/03/17 02:34 134 120/67 12/03/17 01:30 135 118/65 12/03/17 00:45 70 12/03/17 00:00 134 12/03/17 00:00 99.1 134 22 105/58 (74) 98 12/03/17 00:00 98 Mechanical Ventilator 80 12/03/17 00:00 80 12/02/17 23:10 98 80 12/02/17 23:00 80 12/02/17 21:30 90 12/02/17 21:00 132 87/45 12/02/17 20:00 98 Mechanical Ventilator 100 12/02/17 20:00 98.7 132 16 86/44 (58) 98 12/02/17 20:00 100 12/02/17 20:00 132 12/02/17 20:00 132 86/44 12/02/17 19:55 98 100 12/02/17 19:00 132 100/49 12/02/17 18:16 127 12/02/17 17:49 98.3 12/02/17 17:42 98.3 12/02/17 17:33 98.3 12/02/17 17:07 98.2 12/02/17 16:59 122 12/02/17 16:57 96 100 12/02/17 16:24 50 12/02/17 16:24 95 Mechanical Ventilator 50 12/02/17 16:23 122 12/02/17 16:22 98.0 122 22 108/67 (81) 95 12/02/17 13:28 96 50 12/02/17 11:07 118 12/02/17 11:06 95 Mechanical Ventilator 50 12/02/17 11:06 50 12/02/17 11:05 97.1 118 22 88/55 (66) 95 12/02/17 10:04 94 50 I/O 12/02/17 12/02/17 12/02/17 12/03/17 12/03/17 12/03/17 07:00 15:00 23:00 07:00 15:00 23:00 Intake Total 1400 ml 1350 ml 768 ml 1100 ml 50 ml Output Total 120 ml 115 ml 190 ml Balance 1280 ml 1350 ml 653 ml 910 ml 50 ml Intake Oral 0 ml 0 ml IV Total 1400 ml 1350 ml 768 ml 1100 ml 50 ml Output Urine Total 70 ml 15 ml 140 ml Stool Total 100 ml 0 ml Gastric Drainage Total 50 ml 50 ml # Bowel Movements 0 0 Physical Exam GENERAL: Well developed, well nourished. Intubated. Unresponsive. HEENT: Jugular venous pressure is normal. CHEST: Lungs clear to auscultation anteriorly. CARDIAC: Regular rate and rhythm without S3, S4, or murmur. ABDOMEN: Soft, no hepatosplenomegaly. Bowel sounds absent. EXTREMITIES: No clubbing, cyanosis, or edema. Laboratory Laboratory Tests Test 12/02/17 10:10 12/03/17 04:10 White Blood Count 22.8 TH/MM3 Red Blood Count 3.46 MIL/MM3 Hemoglobin 9.9 GM/DL Hematocrit 30.1 % Mean Corpuscular Volume 87.1 FL Mean Corpuscular Hemoglobin 28.7 PG Mean Corpuscular Hemoglobin Concent 32.9 % Red Cell Distribution Width 13.6 % Platelet Count 198 TH/MM3 Mean Platelet Volume 8.8 FL Prothrombin Time 11.9 SEC Prothromb Time International Ratio 1.2 RATIO Activated Partial Thromboplast Time 31.3 SEC Blood Urea Nitrogen 50 MG/DL Creatinine 7.48 MG/DL Random Glucose 142 MG/DL Total Protein 5.7 GM/DL Albumin 1.7 GM/DL Calcium Level 7.3 MG/DL Alkaline Phosphatase 113 U/L Aspartate Amino Transf (AST/SGOT) 235 U/L Alanine Aminotransferase (ALT/SGPT) 222 U/L Total Bilirubin 0.9 MG/DL Direct Bilirubin 0.6 MG/DL Sodium Level 141 MEQ/L Potassium Level 4.5 MEQ/L Chloride Level 108 MEQ/L Carbon Dioxide Level 21.7 MEQ/L Anion Gap 11 MEQ/L Estimat Glomerular Filtration Rate 8 ML/MIN Protein Corrected Calcium 8.0 MG/DL Indirect Bilirubin 0.3 MG/DL Random Vancomycin Level 25.0 COMMENT Assessment and Plan Problem List: (1) Myocardial infarction acute ICD Codes: I21.9 - Acute myocardial infarction, unspecified Status: Acute Plan: Stable overnight. Neurological status remains poor. EF reportedly 30-40 % by echo, appears closer to 40%. No new recommendations at this time. Cath only if he has significant neurological recovery. Will f/u periodically. (2) Dilated cardiomyopathy ICD Codes: I42.0 - Dilated cardiomyopathy Status: Acute Plan: EF 40% by echo. BP's too low for beta ramu, ANDRY-I. Continue supportive care. (3) Ventricular tachyarrhythmia ICD Codes: I47.2 - Ventricular tachycardia Status: Acute Plan: No further VF, PEA, or atrial fibrillation. Continue IV Amiodarone for now. Code Status full code Problem Qualifiers (1) Myocardial infarction acute: Qualified Codes: I21.4 - Non-ST elevation (NSTEMI) myocardial infarction Kev Fernandes MD Dec 03, 2017 09:14
--- NOTE | 2017-12-03 11:06 | RADRPT ---
EXAM DATE/TIME: 12/03/2017 10:20 [place] COMPARISON: BRAIN IMAGE WITH FLOW, December 01, 2017, 13:56. INDICATIONS : Hemorrhage. Post cardiac arrest. DOSE: 25 mCi Tc99m DTPA IV The diagnosis of brain is clinical and the results of this test should be taken in the content of clinical and electrocephalographic data. MEDICAL HISTORY : None SURGICAL HISTORY : None. ENCOUNTER: Subsequent ACUITY: 2 days PAIN SCALE: Non-responsive LOCATION: Head. TECHNIQUE: Anterior dynamic imaging as well as delayed static imaging. FINDINGS: The previously noted minimal flow in the sagittal sinus is no longer visualized. There is no flow in the supratentorial region. CONCLUSION: Findings characteristic of brain . Judah Schmitt MD on December 03, 2017 at 10:56 Board Certified Radiologist. This report was verified electronically.
--- NOTE | 2017-12-03 11:24 | DEATH SUM ---
Pronouncement Date Pronounced : Dec 03, 2017 Time Of : 10:56 Pronouncement Called to pronounce of patient. Identified patient as Ismael Garg with wrist band MR# [id number]. Patient with two physicians who have examined the patient and his neurologic exam is consistent with by neurologic criteria. nuclear medicine brain flow demonstrates no flow and is consistent with the clinical diagnosis of brain . Patient declared by neurologic criteria at 10:56am on 12/03/2017. Preliminary Cause of : Brain Rizwan Georges MD Dec 03, 2017 11:24
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
--- NOTE | 2017-12-03 11:53 | PD.CONS ---
Consult Service Palliative Care Consult Requested By Dr. Georges. Primary Care Physician Unknown Reason for Consultation a. To assist with evaluation and management of symptoms including: Shortness of breath. b. To assist medical decision maker(s) with: better understanding of current medical conditions; weighing benefits/burdens of medical treatment options; making medical treatment decisions. . HPI History of Present Illness Mr. Garg is a 37 -year-old man with no known medical history. Patient presented to ED with [id number]-[id number] V. fib cardiac arrest with delay ROSC. As per patient's , patient has been presenting with flulike symptoms for the past few days, subsequently into a local doctor who diagnosed him with the flu and prescribed Tamiflu. Patient started taking Tamiflu the day prior. On , reported that patient went to the bathroom when she heard a loud sound and found patient unresponsive on the floor. EMS was called to the scene, patient was found on ventricular fibrillation arrest, he received prolonged CPR and was transported to ED for further management. ED workup to include chest x- ray revealing left upper lung field patchy consolidation consistent with likely pneumonia, cardiomegaly. Head CT revealing probable diffuse anoxic encephalopathy. Head and neck CTA with no aneurysm or vascular occlusions identified. Cervical spine CT negative for acute process. Cardiology, Dr. Fernandes consulted. EKG revealing possible anterior infarct. 2- D echo revealing moderate to severe left ventricular systolic function, EF 35-40 %. EEG 12/01/17 revealing flat line appearance suggestive of severe cortical injury. Patient reported no changes in neurological condition, severe encephalopathy. Patient not overbreathing vent, brain flow study 12/02/17 showing only minimal flow. Pending repeat brain flow study to determine brain . Neurological exam consistent with brain . Palliative care has been consulted for emotional support, assistance with goals of care. Met with patient's Tran, patient's mother Wilda Kwok, aunt Cristin, stepfather Mulugeta, daughter Rao and additional family members. In this first visit, reviewed the role of palliative care in advanced illness in regards to symptom management as well as support surrounding goals of care and emotional support. Family receptive to visit. Visit conducted in both Uzbek and Lithuanian, no interpretation services used required as family and palliative care provider speak fluent Lithuanian. Obtained patient's past medical history and psychosocial history. Reviewed events leading to these hospitalization, clinical course and current medical management. Family with a very good understanding of patient's clinical condition, they understand ongoing brain- study. Reviewed that if brain- is confirmed, his body will be disconnected from machines and allowed to be at peace. Family appropriately tearful. Patient's reported that patient has mentioned multiple times previously not wishing to live "attach to machines". also reports that patient is an organ donor and if brain- is confirmed, family would like to honor his wishes. Spoke with patient's 16-year-old daughter Rao. Gently explained patient's condition. She is receptive of talking to gastroenterology nurse practitioner and palliative care marriage and family social worker. Referral made. Family receptive to palliative care follow up this afternoon once brain flow study results are known. 13:28: Patient declared by neurologic criteria at 10:56am on 12/03/2017. Family meeting at 13:00, attendance patient's mother, , brother, sister and additional family members. Reviewed patient's clinical course and declaration of brain by neurologic criteria. Family appropriately tearful, ongoing emotional and spiritual support by staff and gastroenterology nurse practitioner Vikas Mahajan. Family verbalized patient's wishes for organ donation. Organ procurement team present during meeting. All questions were answered in great detail. . Function/Cognitive Trajectory Patient independent with all ADLs, no cognitive deficit or decline reported by family. . Review of Systems ROS Limitations: Clinical Condition, Intubated, Unresponsive Constitutional: COMPLAINS OF: Fatigue, Fever, Chills Endocrine: DENIES: Heat/cold intolerance Eyes: DENIES: Eye inflammation Ears, nose, mouth, throat: COMPLAINS OF: Ear Pain, DENIES: Hearing loss, Nasal discharge, Oral lesions, Running Nose, Epistaxis Respiratory: DENIES: Apneas, Shortness of breath Cardiovascular: DENIES: Lower Extremity Edema Gastrointestinal: COMPLAINS OF: Constipation, DENIES: Diarrhea, Difficulty Swallowing Genitourinary: DENIES: Urinary incontinence Musculoskeletal: COMPLAINS OF: Joint pain, Muscle aches Integumentary: DENIES: Abnormal pigmentation Hematologic/Lymphatics: DENIES: Bruising Immunologic/Allergic: DENIES: Eczema Neurologic: DENIES: Abnormal gait, Seizures, Tremor Psychiatric: DENIES: Anxiety, Mood changes, Hallucinations, Agitation Other ROS: ROS limited secondary to patient's clinical condition. ROS obtained from medical records, patient's family and clinical observation. Past Family Social History Coded Allergies: No Known Allergies (Unverified , 11/30/17) Past Medical History No known past medical history. . Past Surgical History No surgeries reported. . Reported Medications Family reports that patient was taking Tamiflu, started 11/29/17. . Current Medications Medications (Trade) Dose Ordered Sig/Anjelica Route Start Time Stop Time Status Last Admin (Brethine Inj) 1 mg UNSCH PRN SQ 11/30/17 21:00 Amiodarone HCl 450 mg/Sodium Chloride 250 ml @ 33 mls/hr [id number] IV 11/30/17 21:13 12/03/17 01:30 (Tylenol) 650 mg Q6H PRN PO 11/30/17 22:30 (Tears Naturale Opth Soln) 1 drop TID EACH EYE 12/01/17 09:00 (Zofran Inj) 4 mg Q6H PRN IV PUSH 11/30/17 22:30 (Duoneb Neb) 1 ampule Q2HR NEB PRN INH 11/30/17 22:30 12/01/17 04:30 Miscellaneous Information 1 Q361D XX 11/30/17 22:30 (Chlorhexidine 2% Cloth) 3 pack Taper DAILY@04 TOP 12/01/17 04:00 11/27/18 03:59 12/03/17 04:00 (Chlorhexidine 2% Cloth) 3 pack UNSCH PRN TOP 11/30/17 22:30 (Sarah-Colace) 1 tab BID PO 12/01/17 09:00 12/03/17 08:27 (Milk Of Magnesia Liq) 30 ml Q12H PRN PO 11/30/17 22:30 (Senokot) 17.2 mg Q12H PRN PO 11/30/17 22:30 (Dulcolax Supp) 10 mg DAILY PRN RECTAL 11/30/17 22:30 (fentaNYL INJ) 50 mcg Q1H PRN IV PUSH 12/01/17 00:30 Pharmacy Profile Note 0 ml @ 0 mls/hr UNSCH OTHER 12/01/17 01:00 Miscellaneous Information ml @ 0 mls/hr UNSCH IV 12/01/17 01:00 (NS Flush) 2 ml UNSCH PRN IV FLUSH 12/01/17 01:00 (NS Flush) 2 ml UNSCH PRN IV FLUSH 12/01/17 01:00 (Lacrilube Opht Oint) 1 applic Q4H PRN EACH EYE 12/01/17 01:00 12/03/17 08:28 Norepinephrine Bitartrate 4 mg/ Sodium Chloride 250 ml @ 7.5 mls/hr Q24H PRN IV 12/01/17 01:00 12/03/17 07:39 (Heparin Inj) 5,000 units Q8H SQ 12/01/17 22:00 Future Hold 12/01/17 22:00 Azithromycin 500 mg/Sodium Chloride 250 ml @ 250 mls/hr Q24H IV 12/01/17 03:00 12/03/17 03:30 Vasopressin 40 units/Dextrose 100 ml @ 1.5 mls/hr Q24H IV 12/01/17 02:27 12/03/17 02:35 Epinephrine HCl 2 mg/Dextrose 252 ml @ 75.6 mls/hr TITRATE PRN IV 12/01/17 03:15 12/01/17 16:45 (Pepcid) 10 mg BID PO 12/01/17 21:00 12/03/17 08:27 Piperacillin Sod/ Tazobactam Sod 50 ml @ 100 mls/hr Q6H IV 12/01/17 15:00 12/03/17 08:28 (Pill Splitter) 1 ea UNSCH PRN OTHER 12/01/17 11:45 Milrinone Lactate 20 mg/Sodium Chloride 100 ml @ 7.5 mls/hr [id number] IV 12/01/17 22:15 12/03/17 02:36 (D50w (Vial) Inj) 50 ml UNSCH PRN IV PUSH 12/01/17 23:30 (Glucagon Inj) 1 mg UNSCH PRN OTHER 12/01/17 23:30 (NovoLOG SUPPLEMENTAL SCALE) 1 Q6H SQ 12/02/17 00:00 Family History No family history significant of sudden , early coronary artery disease, or intracranial bleed. Patient has 2 daughters who are alive and well. . Substance Use Tobacco: None reported. Alcohol: None reported. Prescription med abuse: None reported. Illicits: None reported. . Psychosocial History Patient originally from [facility]. Moved to [place] in 1985, subsequently moved to [place] in 1999. Patient is , has 2 daughters. Tran is from [place]. Daughter Rao, 16 years old, is from prior relationship. Daughter Veronica, 8 years old, is from this marriage. 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 Patient has 2 additional siblings. . Spiritual/Cultural Factors Episcopalian vahid. Not practicing. . Living Will: Never completed Health Care Surrogate: Never completed Durable Power of Enterprise Applications Manager: Never completed Health Care Surrogate(s): Advanced directives completed. As per [place] statute, healthcare proxy decision-making falls to patient's Tran Garg. . Family/friends goals: Patient declared brain . Family electing donation. . Ethical and Legal Issues No ethical legal issues identified. . Physical Exam Vital Signs Date Time Temp Pulse Resp B/P (MAP) Pulse Ox O2 Delivery O2 Flow Rate FiO2 12/03/17 11:08 50 12/03/17 11:07 118 12/03/17 11:07 98.2 118 24 98/48 (65) 98 12/03/17 11:07 98 Mechanical Ventilator 50 12/03/17 10:55 99 50 12/03/17 10:00 98 50 12/03/17 09:00 121 127/68 18 08:44 98.6 12/03/17 08:24 123 121/69 12/03/17 08:03 98 50 18 07:44 125 131/70 18 07:39 126 120/70 18 07:39 126 121/70 18 07:39 128 18 07:17 98 Mechanical Ventilator 50 12/03/17 07:16 126 18 07:16 50 18 07:15 98.6 126 24 112/65 (81) 98 12/03/17 04:48 98 60 12/03/17 04:00 132 18 04:00 70 12/03/17 04:00 99.3 132 24 111/60 (77) 98 18 04:00 98 Mechanical Ventilator 70 12/03/17 02:36 134 120/67 2/2/18 02:35 134 120/67 18 02:34 134 120/67 18 01:30 135 118/65 2/18 00:45 70 12/03/17 00:00 134 12/03/17 00:00 99.1 134 22 105/58 (74) 98 12/03/17 00:00 98 Mechanical Ventilator 80 12/03/17 00:00 80 12/02/17 23:10 98 80 12/02/17 23:00 80 12/02/17 21:30 90 12/02/17 21:00 132 87/45 12/02/17 20:00 98 Mechanical Ventilator 100 12/02/17 20:00 98.7 132 16 86/44 (58) 98 12/02/17 20:00 100 12/02/17 20:00 132 12/02/17 20:00 132 86/44 12/02/17 19:55 98 100 12/02/17 19:00 132 100/49 12/02/17 18:16 127 12/02/17 17:49 98.3 12/02/17 17:42 98.3 12/02/17 17:33 98.3 12/02/17 17:07 98.2 12/02/17 17:00 85 100 12/02/17 16:59 122 12/02/17 16:57 96 100 12/02/17 16:24 50 12/02/17 16:24 95 Mechanical Ventilator 50 12/02/17 16:23 122 12/02/17 16:22 98.0 122 22 108/67 (81) 95 12/02/17 13:28 96 50 12/03/17 12/04/17 19:00 07:00 Intake Total 50 ml Balance 50 ml IV Total 50 ml Exam CONSTITUTIONAL/GENERAL: This is an adequately nourished patient, in no apparent distress. TUBES/LINES/DRAINS: ETT, OG, central line, Otto catheter, rectal tube. SKIN: No jaundice, rashes, or lesions. No wounds seen anteriorly. Skin temperature appropriate. Not diaphoretic. HEAD: Atraumatic. Normocephalic. EYES: No scleral icterus. No injection or drainage. ENT: Nose without bleeding or purulent drainage. Moist oral mucosa. NECK: Trachea midline. Supple. CARDIOVASCULAR: Regular rate and rhythm without murmurs, gallops, or rubs. No JVD. Peripheral pulses symmetric. RESPIRATORY/CHEST: Symmetric, unlabored respirations. Clear to auscultation. Breath sounds equal bilaterally. Endotracheally intubated on mechanical ventilation. GASTROINTESTINAL: Abdomen soft, non-tender, nondistended. Bowel sounds present. GENITOURINARY: Without palpable bladder distension. Otto catheter in place. MUSCULOSKELETAL: Extremities without clubbing, cyanosis, or edema. No mottling or clubbing. NEUROLOGICAL: Comatose. PSYCHIATRIC: Unable to assess secondary to clinical condition. . Diagnostic Tests Laboratory Laboratory Tests Test 11/30/17 17:55 11/30/17 20:52 11/30/17 21:00 11/30/17 21:30 Nasal Screen MRSA (PCR) MRSA NOT DETECTED (NOT Urine Opiates Screen NEG (NEG) Urine Barbiturates Screen NEG (NEG) Urine Amphetamines Screen NEG (NEG) Urine Benzodiazepines Screen NEG (NEG) Urine Cocaine Screen NEG (NEG) Urine Cannabinoids Screen NEG (NEG) White Blood Count 16.5 TH/MM3 (4.0-11.0) Red Blood Count 4.17 MIL/MM3 (4.50-5.90) Hemoglobin 12.0 GM/DL (13.0-17.0) Bedside Hemoglobin 12.2 G/DL (13.0-17.0) Hematocrit 38.6 % (39.0-51.0) Bedside Hematocrit 36.0 % (39.0-51.0) Mean Corpuscular Volume 92.6 FL (80.0-100.0) Mean Corpuscular Hemoglobin 28.8 PG (27.0-34.0) Mean Corpuscular Hemoglobin Concent 31.0 % (32.0-36.0) Red Cell Distribution Width 13.5 % (11.6-17.2) Platelet Count 212 TH/MM3 (150-450) Mean Platelet Volume 9.4 FL (7.0-11.0) Neutrophils (%) (Auto) 59.5 % (16.0-70.0) Lymphocytes (%) (Auto) 31.6 % (9.0-44.0) Monocytes (%) (Auto) 8.5 % (0.0-8.0) Eosinophils (%) (Auto) 0.2 % (0.0-4.0) Basophils (%) (Auto) 0.2 % (0.0-2.0) Neutrophils # (Auto) 9.8 TH/MM3 (1.8-7.7) Lymphocytes # (Auto) 5.2 TH/MM3 (1.0-4.8) Monocytes # (Auto) 1.4 TH/MM3 (0-0.9) Eosinophils # (Auto) 0.0 TH/MM3 (0-0.4) Basophils # (Auto) 0.0 TH/MM3 (0-0.2) CBC Comment AUTO DIFF Differential Total Cells Counted 100 Neutrophils % (Manual) 46 % (16-70) Band Neutrophils % 10 % (0-6) Lymphocytes % 34 % (9-44) Monocytes % 7 % (0-8) Neutrophils # (Manual) 9.7 TH/MM3 (1.8-7.7) Metamyelocytes 2 % (0-1) Myelocytes 1 % (0-0) Differential Comment FINAL DIFF MANUAL Dohle Bodies (NONE SEEN) Platelet Estimate NORMAL (NORMAL) Platelet Morphology Comment NORMAL (NORMAL) Prothrombin Time 11.9 SEC (9.8-11.6) Prothromb Time International Ratio 1.2 RATIO Activated Partial Thromboplast Time 42.5 SEC (24.3-30.1) Bedside Sodium 137 MMOL/L (137-144) Bedside Potassium 2.7 MMOL/L (3.6-5.0) Bedside Chloride 92 MMOL/L (102-111) Bedside Blood Urea Nitrogen 7 MG/DL (5-21) Bedside Creatinine 1.6 MG/DL (0.6-1.3) Bedside Glucose 383 MG/DL (68-110) Phosphorus Level 10.7 MG/DL (2.5-4.9) Magnesium Level 3.0 MG/DL (1.5-2.5) Total Creatine Kinase 331 U/L (39-308) Creatine Kinase MB 16.6 NG/ML (0.5-3.6) Creatine Kinase MB % 5.0 % (0.0-4.0) Troponin I 7.61 NG/ML (0.02-0.05) C-Reactive Protein 17.00 MG/DL (0.00-0.30) B-Type Natriuretic Peptide 31 PG/ML (0-100) Ethyl Alcohol Level LESS THAN 3 MG/DL (0-5) Urine Color LIGHT-YELLOW (YELLW/STRAW) Urine Turbidity HAZY (CLEAR) Urine pH 6.5 (5.0-8.5) Urine Specific [place] 1.004 (1.002-1.035) Urine Protein 30 mg/dL (NEG-TRACE) Urine Glucose (UA) NEG mg/dL (NEG) Urine Ketones NEG mg/dL (NEG) Urine Occult Blood MOD (NEG) Urine Nitrite NEG (NEG) Urine Bilirubin NEG (NEG) Urine Urobilinogen LESS THAN 2.0 MG/DL (LESS Urine Leukocyte Esterase SMALL (NEG) Urine RBC 15 /hpf (0-3) Urine WBC 4 /hpf (0-5) Urine Squamous Epithelial Cells <1 /hpf (0-5) Urine Amorphous Sediment RARE Urine Bacteria RARE /hpf (NONE) Urine Mucus FEW /lpf (OCC) Microscopic Urinalysis Comment CATH-CULTURE IND Test 11/30/17 21:50 11/30/17 23:30 12/01/17 00:20 12/01/17 01:40 Blood Gas Puncture Site LT FEMORAL ART LINE Blood Gas Patient Temperature 98.6 98.6 Blood Gas HCO3 16 mmol/L (22-26) 17 mmol/L (22-26) Blood Gas Base Excess -11.7 mmol/L (-2-2) -7.1 mmol/L (-2-2) Blood Gas Oxygen Saturation 89 % (90-100) 98 % (90-100) Arterial Blood pH 7.14 (7.380-7.420) 7.37 (7.380-7.420) Arterial Blood Partial Pressure CO2 49 mmHg (38-42) 30 mmHg (38-42) Arterial Blood Partial Pressure O2 76 mmHG (61-120) 446 mmHg (61-120) Arterial Blood Oxygen Content 16.1 Vol % (12.0-20.0) 18.7 Vol % (12.0-20.0) Arterial Blood Carboxyhemoglobin 0.2 % (0-4) 0.2 % (0-4) Arterial Blood Methemoglobin 1.1 % (0-2) 1.6 % (0-2) Blood Gas Hemoglobin 12.8 G/DL (12.0-16.0) 12.9 G/DL (12.0-16.0) Oxygen Delivery Device VENTILATOR VENTILATOR Blood Gas Ventilator Setting 10/500/IT1.0/5PEEP APRV/BI Blood Gas Inspired Oxygen 100 % 100 % Stool C. difficile Toxin (PCR) NEGATIVE (NEGATIVE) Stl C. difficile Toxin Epiderm 027 PRESUMPTIVE NEGATIVE CSF Volume (Tube 1) 2.0 ML CSF Supernatant Color (tube 1) SLIGHTLY XANTHOCHROM CSF Gross Blood (Tube 1) 4+ (0) CSF Volume (Tube 2) 1.0 ML CSF Supernatant Color (tube 2) SLIGHTLY XANTHOCHROM CSF Gross Blood (Tube 2) 4+ (0) CSF Volume (Tube 3) 1.0 ML CSF Supernatant Color (tube 3) CLEAR (CLEAR) CSF Gross Blood (Tube 3) 3+ (0) CSF Volume (Tube 4) 1.5 ML CSF Supernatant Color (tube 4) CLEAR (CLEAR) CSF Gross Blood (Tube 4) 3+ (0) CSF WBC (Tube 4) 29 /MM3 (0-10) CSF RBC (Tube 4) 1917 /MM3 (NONE) CSF Neutrophils 93 % CSF Lymphocytes 3 % CSF Monocytes 4 % CSF Glucose 112 MG/DL (40-80) CSF Lactate Dehydrogenase 25 U/L CSF Lactic Acid 6.9 MMOL/L (0.0-3.0) CSF Total Protein 30.9 MG/DL (15.0-45.0) Herpes Simplex Virus I DNA (PCR) Negative (Negative) Herpes Simplex Virus II DNA (PCR) Negative (Negative) Test 12/01/17 04:45 12/01/17 13:15 12/01/17 16:45 12/01/17 17:55 White Blood Count 22.9 TH/MM3 (4.0-11.0) Red Blood Count 4.32 MIL/MM3 (4.50-5.90) Hemoglobin 13.0 GM/DL (13.0-17.0) Hematocrit 37.5 % (39.0-51.0) Mean Corpuscular Volume 86.9 FL (80.0-100.0) Mean Corpuscular Hemoglobin 30.1 PG (27.0-34.0) Mean Corpuscular Hemoglobin Concent 34.7 % (32.0-36.0) Red Cell Distribution Width 13.6 % (11.6-17.2) Platelet Count 253 TH/MM3 (150-450) Mean Platelet Volume 8.8 FL (7.0-11.0) Neutrophils (%) (Auto) 86.0 % (16.0-70.0) Lymphocytes (%) (Auto) 6.1 % (9.0-44.0) Monocytes (%) (Auto) 7.6 % (0.0-8.0) Eosinophils (%) (Auto) 0.0 % (0.0-4.0) Basophils (%) (Auto) 0.3 % (0.0-2.0) Neutrophils # (Auto) 19.7 TH/MM3 (1.8-7.7) Lymphocytes # (Auto) 1.4 TH/MM3 (1.0-4.8) Monocytes # (Auto) 1.7 TH/MM3 (0-0.9) Eosinophils # (Auto) 0.0 TH/MM3 (0-0.4) Basophils # (Auto) 0.1 TH/MM3 (0-0.2) CBC Comment AUTO DIFF Differential Total Cells Counted 100 Neutrophils % (Manual) 59 % (16-70) Band Neutrophils % 33 % (0-6) Monocytes % 7 % (0-8) Basophils % 1 % (0-2) Neutrophils # (Manual) 21.1 TH/MM3 (1.8-7.7) Differential Comment FINAL DIFF MANUAL Toxic Vacuolation PRESENT (NONE SEEN) Dohle Bodies PRESENT (NONE SEEN) Platelet Estimate NORMAL (NORMAL) Platelet Morphology Comment NORMAL (NORMAL) [place] Cells 1+ (NORMAL) Acanthocytes OCC (NORMAL) Blood Urea Nitrogen 20 MG/DL (7-18) Creatinine 2.93 MG/DL (0.60-1.30) Random Glucose 297 MG/DL (74-106) Total Protein 6.1 GM/DL (6.4-8.2) Albumin 2.4 GM/DL (3.4-5.0) Calcium Level 7.3 MG/DL (8.5-10.1) Phosphorus Level 3.4 MG/DL (2.5-4.9) 1.2 MG/DL (2.5-4.9) Magnesium Level 2.2 MG/DL (1.5-2.5) Alkaline Phosphatase 124 U/L (45-117) Aspartate Amino Transf (AST/SGOT) 832 U/L (15-37) Alanine Aminotransferase (ALT/SGPT) 451 U/L (12-78) Total Bilirubin 1.2 MG/DL (0.2-1.0) Sodium Level 139 MEQ/L (136-145) Potassium Level 2.5 MEQ/L (3.5-5.1) Chloride Level 105 MEQ/L (98-107) Carbon Dioxide Level 16.5 MEQ/L (21.0-32.0) Anion Gap 18 MEQ/L (5-15) Estimat Glomerular Filtration Rate 24 ML/MIN (>89) Lactic Acid Level 9.0 mmol/L (0.4-2.0) Protein Corrected Calcium 7.8 MG/DL (8.5-10.1) Troponin I GREATER THAN 40.00 NG/ML GREATER THAN 40.00 NG/ML Blood Gas Puncture Site ART LINE Blood Gas Patient Temperature 98.6 Blood Gas HCO3 16 mmol/L (22-26) Blood Gas Base Excess -10.7 mmol/L (-2-2) Blood Gas Oxygen Saturation 93 % (90-100) Arterial Blood pH 7.19 (7.380-7.420) Arterial Blood Partial Pressure CO2 43 mmHg (38-42) Arterial Blood Partial Pressure O2 84 mmHg (61-120) Arterial Blood Oxygen Content 15.6 Vol % (12.0-20.0) Arterial Blood Carboxyhemoglobin 0.4 % (0-4) Arterial Blood Methemoglobin 1.8 % (0-2) Blood Gas Hemoglobin 11.9 G/DL (12.0-16.0) Oxygen Delivery Device VENTILATOR Adenovirus (PCR) NOT DETECTED (NOT DETECT) Bordetella holmesii (PCR) NOT DETECTED (NOT DETECT) Bordetella pertussis DNA (PCR) NOT DETECTED (NOT DETECT) B. parapertussis/bronchi (PCR) NOT DETECTED (NOT DETECT) Human Metapneumovirus (PCR) NOT DETECTED (NOT DETECT) Influenza Type A (RT-PCR) NOT DETECTED (NOT DETECT) Influenza Type A (H1) (PCR) NOT DETECTED (NOT DETECT) Influenza Type A (H3) (PCR) NOT DETECTED (NOT DETECT) Influenza Type B (RT-PCR) NOT DETECTED (NOT DETECT) Parainfluenza Type 1 (PCR) NOT DETECTED (NOT DETECT) Parainfluenza Type 2 (PCR) NOT DETECTED (NOT DETECT) Parainfluenza Type 3 (PCR) NOT DETECTED (NOT DETECT) Parainfluenza Type 4 (PCR) NOT DETECTED (NOT DETECT) Resp Syncytial Virus Type A (PCR) NOT DETECTED (NOT DETECT) Resp Syncytial Virus Type B (PCR) NOT DETECTED (NOT DETECT) Rhinovirus (PCR) NOT DETECTED (NOT DETECT) Test 12/02/17 04:30 12/02/17 10:10 12/03/17 04:10 White Blood Count 17.2 TH/MM3 (4.0-11.0) 22.8 TH/MM3 (4.0-11.0) Red Blood Count 3.99 MIL/MM3 (4.50-5.90) 3.46 MIL/MM3 (4.50-5.90) Hemoglobin 11.7 GM/DL (13.0-17.0) 9.9 GM/DL (13.0-17.0) Hematocrit 33.9 % (39.0-51.0) 30.1 % (39.0-51.0) Mean Corpuscular Volume 85.0 FL (80.0-100.0) 87.1 FL (80.0-100.0) Mean Corpuscular Hemoglobin 29.3 PG (27.0-34.0) 28.7 PG (27.0-34.0) Mean Corpuscular Hemoglobin Concent 34.4 % (32.0-36.0) 32.9 % (32.0-36.0) Red Cell Distribution Width 13.4 % (11.6-17.2) 13.6 % (11.6-17.2) Platelet Count 189 TH/MM3 (150-450) 198 TH/MM3 (150-450) Mean Platelet Volume 8.8 FL (7.0-11.0) 8.8 FL (7.0-11.0) Prothrombin Time 12.0 SEC (9.8-11.6) 11.9 SEC (9.8-11.6) Prothromb Time International Ratio 1.2 RATIO 1.2 RATIO Activated Partial Thromboplast Time 28.0 SEC (24.3-30.1) 31.3 SEC (24.3-30.1) Blood Urea Nitrogen 31 MG/DL (7-18) 50 MG/DL (7-18) Creatinine 4.96 MG/DL (0.60-1.30) 7.48 MG/DL (0.60-1.30) Random Glucose 152 MG/DL (74-106) 142 MG/DL (74-106) Total Protein 5.7 GM/DL (6.4-8.2) 5.7 GM/DL (6.4-8.2) Albumin 2.0 GM/DL (3.4-5.0) 1.7 GM/DL (3.4-5.0) Calcium Level 8.0 MG/DL (8.5-10.1) 7.3 MG/DL (8.5-10.1) Alkaline Phosphatase 79 U/L (45-117) 113 U/L (45-117) Aspartate Amino Transf (AST/SGOT) 293 U/L (15-37) 235 U/L (15-37) Alanine Aminotransferase (ALT/SGPT) 308 U/L (12-78) 222 U/L (12-78) Gamma Glutamyl Transpeptidase 79 U/L (15-85) Total Bilirubin 0.8 MG/DL (0.2-1.0) 0.9 MG/DL (0.2-1.0) Direct Bilirubin 0.4 MG/DL (0.0-0.2) 0.6 MG/DL (0.0-0.2) Sodium Level 138 MEQ/L (136-145) 141 MEQ/L (136-145) Potassium Level 3.8 MEQ/L (3.5-5.1) 4.5 MEQ/L (3.5-5.1) Chloride Level 105 MEQ/L (98-107) 108 MEQ/L (98-107) Carbon Dioxide Level 21.4 MEQ/L (21.0-32.0) 21.7 MEQ/L (21.0-32.0) Anion Gap 12 MEQ/L (5-15) 11 MEQ/L (5-15) Estimat Glomerular Filtration Rate 13 ML/MIN (>89) 8 ML/MIN (>89) Indirect Bilirubin 0.4 MG/DL (0.0-0.8) 0.3 MG/DL (0.0-0.8) Random Vancomycin Level 29.1 COMMENT 25.0 COMMENT Protein Corrected Calcium 8.0 MG/DL (8.5-10.1) Result Diagram: 12/03/17 0410 12/03/17 0410 Microbiology Microbiology Date/Time Source Procedure Growth Status 11/30/17 21:30 Blood Peripheral Aerobic Blood Culture - Preliminary NO GROWTH IN 3 DAYS Resulted 11/30/17 21:30 Blood Peripheral Anaerobic Blood Culture - Preliminary NO GROWTH IN 3 DAYS Resulted 11/30/17 21:30 Blood Peripheral Aerobic Blood Culture - Preliminary NO GROWTH IN 3 DAYS Resulted 11/30/17 21:30 Blood Peripheral Anaerobic Blood Culture - Preliminary NO GROWTH IN 3 DAYS Resulted 12/01/17 00:20 Cerebral Spinal Fluid Lumbar Puncture Gram Stain - Final Resulted 12/01/17 00:20 Cerebral Spinal Fluid Lumbar Puncture CSF Culture - Preliminary NO GROWTH IN 48 HOURS. Resulted 11/30/17 21:30 Nasal Aspirate Influenza Types A,B Antigen (TORRES) - Final NEGATIVE FOR FLU A AND B ANTIGEN.... Complete 11/30/17 21:30 Urine Catheterized Urine Urine Culture - Final NO GROWTH IN 48 HOURS. Complete Imaging Last Impressions Brain Flow Nuclear Medicine 12/01/17 1600 Signed Impressions: Service Date/Time: Friday, December 01, 2017 13:56 - CONCLUSION: Minimal flow in the sagittal sinus. The patient does not meet the criteria for brain . Judah Schmitt MD Chest X-Ray 12/01/17 0000 Signed Impressions: Service Date/Time: Friday, December 01, 2017 04:35 - CONCLUSION: 1. Endotracheal tube and nasogastric tube in good position. Improving airspace disease. Max Suarez MD Head CT 11/30/172117 Signed Impressions: Service Date/Time: Thursday, November 30, 2017 22:37 - CONCLUSION: There is diffuse effacement of the cerebral sulci bilaterally suggestive of probable diffuse anoxic encephalopathy. Questionable subarachnoid hemorrhage is noted bilaterally also. The findings were discussed with Dr. Ambrosio 11:00 PM on 11/30/17. Tim Johnson MD Cervical Spine CT 11/30/172117 Signed Impressions: Service Date/Time: Thursday, November 30, 2017 22:49 - CONCLUSION: 1. Exam degraded by motion. No acute fracture or spondylolisthesis identified. No bony canal stenosis. 2. Consolidation in the upper lungs which could be secondary to aspiration. Endotracheal tube and nasogastric tube present. Max Suarez MD Neck CTA 11/30/17 0000 Signed Impressions: Service Date/Time: Thursday, November 30, 2017 22:37 - CONCLUSION: 1. CTA carotid arteries unremarkable. Note is made of consolidation in the upper lungs. Max Suarez MD Head CTA 11/30/17 0000 Signed Impressions: Service Date/Time: Thursday, November 30, 2017 22:49 - CONCLUSION: 1. No vascular abnormalities identified in the brain. No discrete aneurysm or vascular occlusion is identified. Max Suarez MD Procedures * 11/30/17 -endotracheal intubation * 11/30/17 -central line placement * 12/01/17 -lumbar puncture . Patient/Family Conference Present at Family Conference: Patient's Tran, patient's mother Wilda Kwok, aunt Cristin, stepfather Mulugeta, daughter Rao and additional family members. Family Conference Time (mins): 47 Family Conference Location: Consult Room Issues Discussed: * Palliative care role, purpose, approach * Additional medical, psychosocial, and spiritual history * Patients general health, functional status, and cognitive changes in the months leading up to the current hospitalization * Patient/family understanding of the current medical problems -patient status post cardiopulmonary arrest, brain- * Patient/family understanding of prognosis - by neurological criteria * Patients goals of care as best understood from advance directives and/or conversations and/or values * Questions answered to the best of my ability * Palliative care contact information provided . Assessment and Plan Disease Oriented Problem List: (1) Cardiopulmonary arrest (2) Respiratory failure (3) Cardiogenic shock (4) Pneumonia Symptom Scale: (1) Dyspnea Pertinent Non-Medical Issues Psychosocial: Patient originally from [facility]. Moved to [place] in 1985, subsequently moved to [place] in 1999. Patient is , has 2 daughters. Tran is from [place]. Daughter Rao, 16 years old, is from prior relationship. Daughter Veronica, 8 years old, is from this marriage. 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 Patient has 2 additional siblings. Spiritual: Ep[employer]opalian vahid. No practicing. Legal: No advance directives completed. Ethical issues impacting care: No ethical issues identified at this time. . Important Contacts Tran Garg . . Prognosis Mr. Garg is a 37-year-old male with no known significant medical history status post cardiopulmonary arrest with ROS. Clinical course complicated by severe brain injury which progressed to brain-. . Plan * CODE STATUS: Not applicable. Patient declared by neurological criteria at 10:56 AM on 12/03/17. * HEALTHCARE DECISION-MAKING: Patient incapacitated for medical decision-making , brain-. No advance directives completed. As per [place] statute, healthcare proxy decision-making falls to patient's Tran Golden. She has accepted this role and is being fully supported by patient's large family. * GOALS OF CARE: Patient declared by neurological criteria at 10:56 AM on 12/03/17. Family electing organ donation, procurement team following. * SYMPTOMS: Not applicable, see above. * Case discussed in great detail with Dr. Georges and spiritual services, gastroenterology nurse practitionersuyapa Mahajan. * Active listening and ongoing emotional support provided to patient's , mother and additional family members. * Spiritual services offered and accepted. Chaplain Vikas Mahajan in both with families interactions and family meetings. * Palliative care contact information has been provided to patient's family. . Time Spent Total Floor Time (mins): 104 (Total time to include review and summarization of available medical records, physical exam, 2 separate family meetings to discuss patient's clinical course and prognosis, case discussion with Dr. Georges and spiritual services.) >50% Counseling/Coord of Care: Yes Thank you for the opportunity to participate in the care of Mr. Garg. Attestation To help prompt me to consider important information that might be impacting today's encounter and assessment, information from prior notes written by myself or my colleagues may have been "brought forward" into today's note. My signature on this note, however, is an attestation that I personally performed the exam, history, and/or decision-making noted today, and, unless otherwise indicated, the interactions with patient, family, and staff as well as the review of records all occurred today. I also attest that the listed assessment and stated plan reflect my best clinical judgment today based on the combination of historical information, prior notes, and today's exam/ interactions. When time spent is documented, it refers only to time spent today by the signer, or if indicated, combined time spent today by collaborating physician/nurse practitioner. Connie Goldstein Dec 03, 2017 11:53
[2017-12-03] MEDS ORDERED: VASOPRESSIN 80 U/NS 100 ML Titrate per Translife Protocol IV PRN ×2 (15:15)
[2017-12-03] MEDS ORDERED: INSULIN HUMAN REGULAR 1,000 UNITS/10 ML VIAL IV PUSH SCH (15:15)
[2017-12-03] MEDS ORDERED: LEVOTHYROXINE 400 MCG/NS 500 ML IV SCH ×4 (15:15→18:00)
[2017-12-03] MEDS ORDERED: DOPamine INJ PREMIX 500 ML IV SCH (15:15)
[2017-12-03] MEDS ORDERED: DEXTROSE 50% IN WATER 50 ML VIAL(D50) IV PUSH SCH (15:30)
[2017-12-03] MEDS ORDERED: LEVOTHYROXINE SODIUM 100 MCG VIAL IV PUSH ONE (15:30)
[2017-12-03] MEDS: RESP: ALBUTEROL 2.5 MG/3 ML NEB (SCH) NEB ×2 (16:00→19:14)
[2017-12-03] MEDS ORDERED: ceFAZolin 1,000 MG/NS 100 ML IV SCH ×2 (16:00)
[2017-12-03] MEDS: RESP: ACETYLCYSTEINE 20% 30 ML NEB NEB SCH ×2 (16:00→19:15)
--- NOTE | 2017-12-03 16:04 | RADRPT ---
EXAM DATE/TIME: 12/03/2017 15:16 [facility] COMPARISON: CHEST SINGLE AP, December 01, 2017, 4:35. INDICATIONS : Evaluate for CHF. MEDICAL HISTORY : None. SURGICAL HISTORY : None. ENCOUNTER: Subsequent ACUITY: 4 - 6 days PAIN SCORE: Non-responsive. LOCATION: chest FINDINGS: Stable ETT and NGT. There is diffuse interstitial prominence and hazy bilateral lower lung zone opaci ties. Pulmonary vascularity is indistinct. Remainder of the exam is unchanged. CONCLUSION: 1. Stable ETT and NGT. 2. Pulmonary edema pattern with likely trace bilateral pleural effusions. Monty Vickers MD on December 03, 2017 at 16:00 Board Certified Radiologist. This report was verified electronically.
[2017-12-03 16:55] LABS: AUTOMATED NEUTROPHIL # 15.3 TH/MM3 (1.8-7.7); BASOPHIL # 0.1 TH/MM3 (0-0.2); BASOPHIL % 0.4 % (0.0-2.0); EOSINOPHIL % 0.1 % (0.0-4.0); HEMATOCRIT 25.4 % (39.0-51.0); HEMOGLOBIN 8.6 GM/DL (13.0-17.0); LYMPH % 7.6 % (9.0-44.0); LYMPHOCYTE # 1.4 TH/MM3 (1.0-4.8); MEAN CELL VOLUME 86.3 FL (80.0-100.0); MEAN CORPUSCULAR HEMOGLOBIN 29.4 PG (27.0-34.0); MEAN PLATELET VOLUME 8.8 FL (7.0-11.0); MONO % 7.8 % (0.0-8.0); MONOCYTE # 1.4 TH/MM3 (0-0.9); NEUT % 84.1 % (16.0-70.0); PLATELET COUNT 170 TH/MM3 (150-450); RED BLOOD COUNT 2.94 MIL/MM3 (4.50-5.90); RED CELL DISTRIBUTION WIDTH 13.9 % (11.6-17.2); WHITE BLOOD COUNT 18.2 TH/MM3 (4.0-11.0)
[2017-12-03] MEDS ORDERED: cefTAZidime 1,000 MG/NS 100 ML IV SCH ×2 (17:00)
[2017-12-03 17:05] LABS: INTERNATIONAL NORMALIZED RATIO 1.2 RATIO; PROTHROMBIN TIME - PATIENT 11.9 SEC (9.8-11.6)
[2017-12-03 17:11] LABS: BILIRUBIN, URINE NEG (NEG); BLOOD, URINE MOD (NEG); GLUCOSE,URINE NEG (NEG); KETONE, URINE NEG (NEG); NITRITE,URINE NEG (NEG); PH, URINE 7.5 (5.0-8.5); SQUAMOUS EPITHELIAL CELL URINE <1 /hpf (0-5); URINE COLOR LIGHT-YELLOW (YELLW/STRAW); URINE LEUKOCYTE ESTERASE NEG (NEG)
[2017-12-03] MEDS ORDERED: CEFEPIME INJ 1,000 MG in SODIUM CHLORIDE 0.9% INJ 100 ML IV SCH ×2 (17:30→20:00)
[2017-12-03 17:31] LABS: HEMOGLOBIN A1C 5.9 % (4.3-6.0)
[2017-12-03 17:41] LABS: ALBUMIN 1.6 GM/DL (3.4-5.0); ALKALINE PHOSPHATASE 156 U/L (45-117); ALT (GPT) 174 U/L (12-78); AST (GOT) 267 U/L (15-37); BICARBONATE 23.7 MEQ/L (21.0-32.0); BLOOD UREA NITROGEN 60 MG/DL (7-18); CALCIUM 7.5 MG/DL (8.5-10.1); CHLORIDE 105 MEQ/L (98-107); CREATININE 8.98 MG/DL (0.60-1.30); DIRECT BILIRUBIN ADULT 0.7 MG/DL (0.0-0.2); GAMMA GT 106 U/L (15-85); GLOMERULAR FILTRATION RATE 7 ML/MIN (>89); GLUCOSE,RANDOM 147 MG/DL (74-106); INDIRECT BILIRUBIN 0.4 MG/DL (0.0-0.8); LIPASE 152 U/L (73-393); PHOSPHORUS 3.3 MG/DL (2.5-4.9); SODIUM (NA) 141 MEQ/L (136-145); TOTAL BILIRUBIN ADULT 1.1 MG/DL (0.2-1.0); TOTAL PROTEIN 5.5 GM/DL (6.4-8.2)
[2017-12-03 17:48] LABS: AMYLASE 271 U/L (25-115)
[2017-12-03] MEDS ORDERED: CLINDAMYCIN 900 MG in NS 100 ML IV SCH (18:00)
[2017-12-03] MEDS ORDERED: methylPREDNISolone SO SUCC INJ 2,000 MG in DEXTROSE 5% IN WATER INJ 250 ML IV ONE ×2 (18:00)
[2017-12-04] MEDS ORDERED: methylPREDNISolone SOD SUCC 1000 MG/16 ML VIAL IV SCH
[2017-12-04] MEDS ORDERED: FUROSEMIDE 100 MG/10 ML VIAL ONE (01:06)
[2017-12-04] MEDS ORDERED: MANNITOL INJ 100 ML ONE (01:06)
[2017-12-04] MEDS ORDERED: SODIUM CHLORIDE 0.9% IV SCH (02:00)
[2017-12-04] MEDS ORDERED: methylPREDNISolone SO SUCC INJ 1,000 MG in SODIUM CHLORIDE 0.9% INJ 100 ML IV SCH (02:00)
[2017-12-04] MEDS ORDERED: HYDROCORTISONE IV SCH (02:00)
--- NOTE | 2017-12-04 15:36 | EKG ---
Date Performed: 12/03/2017 Time Performed: 15:09:44 PTAGE: 37 years EKG: Sinus tachycardia MN interval .14 Generalized low voltage Compared to previous tracing, R-w ave progression slightly improved, otherwise no significant change. Borderline ECG PREVIOUS TRACING : 12/01/2017 16.06 DOCTOR: Fortino Sandra Interpretating Date/Time 12/04/2017 15:34:58
== END 2017-12-03 10:56 | disposition expired ==
LOC: NEPC 20:44 → NEDA 21:21 → HCVI 23:05
PROVIDERS: ADMIT Internal Medicine Critical Care Medicine; ATTEND Internal Medicine Critical Care Medicine
PROC: 5A1945Z Respiratory Ventilation, 24-96 Consecutive Hours (ICD-10-PCS; principal; 2017-11-30)
PROC: 0BH17EZ Insertion of Endotracheal Airway into Trachea, Via Natural or Artificial Opening (ICD-10-PCS; 2017-11-30)
PROC: 06HM33Z Insertion of Infusion Device into Right Femoral Vein, Percutaneous Approach (ICD-10-PCS; 2017-11-30)
PROC: 6A4Z0ZZ Hypothermia, Single (ICD-10-PCS; 2017-11-30)
PROC: 009U3ZX Drainage of Spinal Canal, Percutaneous Approach, Diagnostic (ICD-10-PCS; 2017-12-01)
DX: I46.9 Cardiac arrest, cause unspecified (principal); G93.6 Cerebral edema; I21.4 Non-ST elevation (NSTEMI) myocardial infarction; J96.01 Acute respiratory failure with hypoxia; I60.9 Nontraumatic subarachnoid hemorrhage, unspecified; G93.1 Anoxic brain damage, not elsewhere classified; J69.0 Pneumonitis due to inhalation of food and vomit; K72.00 Acute and subacute hepatic failure without coma; N17.9 Acute kidney failure, unspecified; I42.0 Dilated cardiomyopathy; R57.8 Other shock; R57.0 Cardiogenic shock; E87.70 Fluid overload, unspecified; B34.9 Viral infection, unspecified; R73.9 Hyperglycemia, unspecified; I47.2 Ventricular tachycardia; Z51.5 Encounter for palliative care
CPT/HCPCS: 36556; 36600; 36620; 51702; 70450; 70496; 70498; 71045; 72126; 76937; 78606; 80048; 80053; 80076; 80202; 80307; 81001; 82150; 82330; 82550; 82552; 82805; 82945; 82948; 82977; 83036; 83605; 83615; 83690; 83735; 83880; 84100; 84155; 84157; 84484; 85007; 85025; 85027; 85610; 85730; 86140; 86592; 86618; 86658; 86850; 86900; 86901; 87040; 87070; 87086; 87205; 87493; 87529; 87633; 87641; 87804; 89051; 93005; 93308; 94003; 94640; 94664; 95819; A9539; J0171; J0282; J0456; J0690; J1120; J1205; J1644; J1815; J1940; J2150; J2175; J2250; J2260; J2310; J2543; J2930; J3370; J3480; J7030; J7040; J7050; J7060; J7613; L0150; Q9967